=== PATIENT | female | born 1990 | race Caucasian/White ===

== ENCOUNTER → 2019-11-11 10:52 | Outpatient (CLI) | payer OTHER, SELFPAY ==
--- NOTE | ~2019-11-11 | XR_ITS ---
EXAMINATION: XR shoulder LT min 2V DATE: 11/11/2019 11:17 INDICATION: Left shoulder pain. TECHNIQUE: 4 views of left shoulder were obtained. COMPARISON: None. FINDINGS: Bone alignment is normal. No fracture. There is an os acromiale. Joint spaces are normal. IMPRESSION: 1. No acute fracture or arthritis. Reviewed, dictated and finalized at location A.
== END ==
PROVIDERS: PCP Family Medicine; Visit Provider Physician Assistant
DX: M25.512 Pain in left shoulder (principal)
CPT/HCPCS: 73030

== ENCOUNTER → 2020-06-08 14:51 | Outpatient (CLI) | payer OTHER, SELFPAY ==
--- NOTE | ~2020-06-08 | CT_ITS ---
EXAMINATION: CT BRAIN W/O DATE: 06/08/2020 15:05 INDICATION: Dizziness TECHNIQUE: Computed tomography (CT) of the head was performed without intravenous contrast. The dose- length product was 524.62 mGy-cm. The mA was adjusted according to patient size. Iterative reconstruc tion technique was employed. COMPARISON: No prior studies for comparison. FINDINGS: Normal brain parenchymal volume for age. Normal montejo-white differentiation. No acute intrac ranial hemorrhage, infarction, mass or mass effect. No ventriculomegaly or midline shift. Midline sagittal images demonstrate a normal corpus callosum, c raniovertebral junction and sella turcica. Basilar cisterns are patent. Paranasal sinuses and mastoids are pneumatized. No depressed skull fractures. IMPRESSION: 1. No acute intracranial abnormality. Reviewed, dictated and finalized at location A.
== END ==
PROVIDERS: PCP Family Medicine; Visit Provider Family Medicine
DX: R42 Dizziness and giddiness (principal)
CPT/HCPCS: 70450

== ENCOUNTER 2021-08-28 16:35 | Outpatient (CLI) | payer BC, SELFPAY ==
--- NOTE | ~2021-08-28 | US_ITS ---
EXAMINATION:US venous doppler LE BI INDICATION:Leg edema TECHNIQUE: Multiple grayscale, color flow and Doppler images of the right and left lower extremity de ep venous systems were obtained and reviewed. COMPARISON:No prior studies for comparison. FINDINGS: The common femoral, superficial femoral and popliteal veins demonstrate normal respiratory variation, augmentation and compressibility. Color flow is also seen within the posterior tibial, pe roneal, greater saphenous and profunda veins. IMPRESSION: 1: No lower extremity deep venous thrombosis. Reviewed, dictated and finalized at location A.
[2021-08-28 17:43] LABS: Basophils Absolute Auto 0.1 K/mm3 (0.0-0.1); Basophils Percent Auto 0.4 % (0.2-1.2); Eosinophils Absolute Auto 0.1 K/mm3 (0-0.3); Eosinophils Percent Auto 0.8 % (0-4.4); Hematocrit 38.4 % (37.0-47.0); Hemoglobin 12.8 g/dL (12.0-15.0); Immature Granulocyte Absolute 0.22 K/mm3 (0.00-0.031); Immature Granulocyte Percent A 1.6 % (0-0.5); Lymphocytes Absolute Auto 2.67 K/mm3 (0.9-3.2); Lymphocytes Percent Auto 19.9 % (18.3-44.2); Mean Corpuscular HGB Conc 33.3 g/dl (32-36); Mean Corpuscular Hemoglobin 30.5 pg (26-34); Mean Corpuscular Volume 91.6 fl (80-100); Mean Platelet Volume 10.8 fl (7.4-10.4); Monocytes Percent Auto 7.2 % (2.6-8.5); Neutrophils Absolute Auto 9.4 K/mm3 (1.3-6.7); Neutrophils Percent Auto 70.1 % (45.5-73.1); Platelet Count Result 198 k/mm3 (150-375); Red Blood Count 4.19 M/mm3 (4.2-5.4); Red Cell Distribution Width 12.8 % (11.5-14.5); White Blood Count 13.4 K/mm3 (4.5-10.0)
[2021-08-28 17:49] LABS: Creatinine Urine 42.7 mg/dL
[2021-08-28 17:57] LABS: Alanine Aminotransferase 21 U/L (6-35); Albumin Level 3.5 g/dL (3.5-5.1); Alkaline Phosphatase 102 U/L (38-126); Anion Gap 4 mmol/L (8-16); Aspartate Amino Transferase 26 U/L (14-36); Bilirubin,Total 0.2 mg/dL (0.2-1.3); Blood Urea Nitrogen 10 mg/dL (7-17); Carbon Dioxide 25 mmol/L (22-30); Chloride 105 mmol/L (98-107); Estimated Glomerular Filt Rate > 60; Glucose 100 mg/dL (65-110); Potassium 4.1 mmol/L (3.4-5.0); Sodium 134 mmol/L (137-145)
== END 2021-08-28 16:36 | disposition home or self-care (01) ==
PROVIDERS: PCP Internal Medicine; Visit Provider Obstetrics & Gynecology
DX: R60.0 Localized edema (principal)
CPT/HCPCS: 36415; 80053; 82570; 84550; 85025; 93970

== ENCOUNTER 2021-09-12 00:24 | Inpatient (IN) | payer BC, SELFPAY ==
[2021-09-12] VITALS (228 sets, daily range): BP systolic 91–152; BP diastolic 50–102; PULSE 40–150; RESP 12–18; TEMP 35.9–37.2; O2SAT 80–100; BMI 42.7
--- NOTE | 2021-09-12 00:46 | WPDOBADMIT ---
Obstetrics - Admit Note Admission Note: record reviewed. No pertinent additions to the history and/or any subsequent changes in the physical findings that are not consistent with the expected course of the were found. Pt admitted for SROM, SVE by RN , plan augmentation with pitocin if needed. anticipate vaginal delivery Additions to the history and/or subsequent changes in the physical findings follow. None.
--- NOTE | 2021-09-12 03:36 | P.PNAN_ITS ---
Anes - Eval Pre Procedure Procedure: labor epidural Date/Time: 09/12/21 03:36 Surgeon: timothy Preop Diagnosis: pain during labor Pre Op Diagnosis: Leaking Patient Data Age: 30 Gender: F Height: Weight: Last Vital Signs Pulse 84 09/12/21 01:46 BP 126/80 09/12/21 01:46 Allergies Allergy/AdvReac Type Severity Reaction Status Date / Time No Known Allergies Allergy Unverified 05/25/20 08:53 Home Medications Medication Instructions Recorded Confirmed Type Adult Low Dose Aspirin 1 tablet DAILY 09/06/21 09/06/21 History prenat.vits,jessica,aiw-eoon-lpmma 1 tablet PO DAILY 09/06/21 09/06/21 History Laboratory Tests 09/12/21 02:44 RPR Pending Patient hx anesthesia problems: none Family hx anesthesia problems: none Results Review: All pre-operative results and documents have been reviewed as part of the pre- operative evaluation. PMFSH Past Medical History Medical History (Updated 09/12/21 @ 03:37 by Phyllis To CRNA) IUP (intrauterine ), incidental Family History Family History (Updated 09/06/21 @ 15:41 by Caity Greenberg RN) Grandparent Hypertension Adenocarcinoma Social History Social History (Updated 11/11/19 @ 10:23 by Gwen Hayes) Smoking status: Never smoker Second hand tobacco smoke exposure: No Alcohol intake: current Alcohol use details: occasional Substance use: never Substance use type: does not use Gender identity (if verbalized by the patient): Female Spiritual care concerns: No Exam Day of Procedure 09/12/21 03:36
[2021-09-12] MEDS: LACTATED RINGERS 1,000 ML 125 ML IV CONT ×4 (05:06→19:50)
[2021-09-12] MEDS: OXYTOCIN 30 UNITS/NS 500 ML 30 UNITS/500 ML BAG IV CONT (05:07)
[2021-09-12 07:25] LABS: Rapid Plasma Reagin Non-Reactive (NonReactive)
[2021-09-12] MEDS: fentaNYL CITRATE INJ (*CRX) 100 MCG/2 ML VIAL 50 MCG IV PUSH (07:41)
[2021-09-12] MEDS: ONDANSETRON INJ 4 MG/2 ML VIAL IV PUSH (15:14)
[2021-09-12] MEDS: AMPICILLIN 2 GM/NS 100 ML 2 GM/100 ML BAG IVPB (18:49)
--- NOTE | 2021-09-12 21:33 | PM.IMHP ---
H&P: HPI History of Present Illness Date/Time: 09/12/21 21:33 at 37 weeks gestation. pt admitted after SROM at home Pt had covid during and has been asa. Hx LEEP prior to procedure Chief Complaint: SROM Review of Systems Review of Systems: All systems reviewed & are unremarkable except as noted in HPI and below PMFSH Past Medical History Medical History (Updated 09/12/21 @ 21:38 by Norma Rogers CNM) IUP (intrauterine ), incidental Family History Family History (Updated 09/06/21 @ 15:41 by Caity Greenberg RN) Grandparent Hypertension Adenocarcinoma Social History Social History (Updated 11/11/19 @ 10:23 by Gwen Hayes) Smoking status: Never smoker Second hand tobacco smoke exposure: No Alcohol intake: current Alcohol use details: occasional Substance use: never Substance use type: does not use Gender identity (if verbalized by the patient): Female Spiritual care concerns: No Meds Home Medications and Allergies Home Medications Medication Instructions Recorded Confirmed Type Adult Low Dose Aspirin 1 tablet DAILY 09/06/21 09/06/21 History prenat.vits,jessica,lox-novd-fsrvi 1 tablet PO DAILY 09/06/21 09/06/21 History Allergies Allergy/AdvReac Type Severity Reaction Status Date / Time No Known Allergies Allergy Unverified 05/25/20 08:53 Vital Signs Vital Signs - 24 hr 09/12/21 00:46 09/12/21 01:01 09/12/21 01:16 Temperature Pulse Rate 76 92 71 Blood Pressure 137/83 123/82 125/78 Pulse Oximetry Oxygen Delivery 09/12/21 01:31 09/12/21 01:46 09/12/21 05:08 Temperature Pulse Rate 104 H 84 68 Blood Pressure 119/84 126/80 121/79 Pulse Oximetry Oxygen Delivery 09/12/21 05:12 09/12/21 05:31 09/12/21 06:01 Temperature 36.3 C L Pulse Rate 73 74 Blood Pressure 112/56 L 111/61 Pulse Oximetry Oxygen Delivery 09/12/21 01:00 09/12/21 03:00 09/12/21 06:31 Temperature 36.1 C L 36.4 C Pulse Rate 76 Blood Pressure 117/78 Pulse Oximetry Oxygen Delivery 09/12/21 06:30 09/12/21 07:01 09/12/21 07:31 Temperature 36.3 C L Pulse Rate 65 82 Blood Pressure 120/72 119/83 Pulse Oximetry Oxygen Delivery 09/12/21 08:01 09/12/21 08:30 09/12/21 08:31 Temperature 36.1 C L Pulse Rate 82 67 Blood Pressure 125/71 106/63 Pulse Oximetry Oxygen Delivery 09/12/21 09:01 09/12/21 09:30 09/12/21 09:31 Temperature Pulse Rate 88 93 Blood Pressure 139/84 141/80 H Pulse Oximetry 100 Oxygen Delivery 09/12/21 09:33 09/12/21 09:35 09/12/21 09:37 Temperature Pulse Rate 101 H 99 110 H Blood Pressure 142/83 H 132/86 143/93 H Pulse Oximetry 100 Oxygen Delivery 09/12/21 09:39 09/12/21 09:40 09/12/21 09:41 Temperature Pulse Rate 84 72 Blood Pressure 144/81 H 131/74 Pulse Oximetry 100 Oxygen Delivery 09/12/21 09:43 09/12/21 09:45 09/12/21 09:47 Temperature Pulse Rate 76 76 95 Blood Pressure 130/76 122/83 121/79 Pulse Oximetry 100 Oxygen Delivery 09/12/21 09:49 09/12/21 09:50 09/12/21 09:51 Temperature Pulse Rate 71 87 Blood Pressure 140/76 142/91 H Pulse Oximetry 99 Oxygen Delivery 09/12/21 09:53 09/12/21 09:55 09/12/21 09:57 Temperature Pulse Rate 75 78 90 Blood Pressure 144/70 H 139/66 124/81 Pulse Oximetry 99 Oxygen Delivery 09/12/21 09:59 09/12/21 10:00 09/12/21 10:01 Temperature Pulse Rate 85 78 Blood Pressure 133/82 136/77 Pulse Oximetry 100 Oxygen Delivery 09/12/21 10:03 09/12/21 10:05 09/12/21 10:07 Temperature Pulse Rate 107 H 98 78 Blood Pressure 124/80 122/76 134/82 Pulse Oximetry 100 Oxygen Delivery 09/12/21 10:09 09/12/21 10:10 09/12/21 10:11 Temperature Pulse Rate 77 150 H Blood Pressure 125/77 122/69 Pulse Oximetry 100 Oxygen Delivery 09/12/21 10:13 09/12/21 10:15 09/12/21 10:17 Temperature Pulse Rate 116 H 79
--- NOTE | 2021-09-12 21:51 | PM.IMHP ---
H&P: HPI History of Present Illness Date/Time: 09/12/21 21:51 Chief Complaint: at 37 weeks, pt has been complete and pushing for almost 2 hours with minimal descent, pt fatigued PMFSH Past Medical History Medical History (Updated 09/12/21 @ 21:52 by Norma Rogers CNM) IUP (intrauterine ), incidental Family History Family History (Updated 09/06/21 @ 15:41 by Caity Greenberg RN) Grandparent Hypertension Adenocarcinoma Social History Social History (Updated 11/11/19 @ 10:23 by Gwen Hayes) Smoking status: Never smoker Second hand tobacco smoke exposure: No Alcohol intake: current Alcohol use details: occasional Substance use: never Substance use type: does not use Gender identity (if verbalized by the patient): Female Spiritual care concerns: No Meds Home Medications and Allergies Home Medications Medication Instructions Recorded Confirmed Type Adult Low Dose Aspirin 1 tablet DAILY 09/06/21 09/06/21 History prenat.vits,jessica,[id number] 1 tablet PO DAILY 09/06/21 09/06/21 History Allergies Allergy/AdvReac Type Severity Reaction Status Date / Time No Known Allergies Allergy Unverified 05/25/20 08:53 Vital Signs Vital Signs - 24 hr 09/12/21 00:46 09/12/21 01:01 09/12/21 01:16 Temperature Pulse Rate 76 92 71 Blood Pressure 137/83 123/82 125/78 Pulse Oximetry Oxygen Delivery 09/12/21 01:31 09/12/21 01:46 09/12/21 05:08 Temperature Pulse Rate 104 H 84 68 Blood Pressure 119/84 126/80 121/79 Pulse Oximetry Oxygen Delivery 09/12/21 05:12 09/12/21 05:31 09/12/21 06:01 Temperature 36.3 C L Pulse Rate 73 74 Blood Pressure 112/56 L 111/61 Pulse Oximetry Oxygen Delivery 09/12/21 01:00 09/12/21 03:00 09/12/21 06:31 Temperature 36.1 C L 36.4 C Pulse Rate 76 Blood Pressure 117/78 Pulse Oximetry Oxygen Delivery 09/12/21 06:30 09/12/21 07:01 09/12/21 07:31 Temperature 36.3 C L Pulse Rate 65 82 Blood Pressure 120/72 119/83 Pulse Oximetry Oxygen Delivery 09/12/21 08:01 09/12/21 08:30 09/12/21 08:31 Temperature 36.1 C L Pulse Rate 82 67 Blood Pressure 125/71 106/63 Pulse Oximetry Oxygen Delivery 09/12/21 09:01 09/12/21 09:30 09/12/21 09:31 Temperature Pulse Rate 88 93 Blood Pressure 139/84 141/80 H Pulse Oximetry 100 Oxygen Delivery 09/12/21 09:33 09/12/21 09:35 09/12/21 09:37 Temperature Pulse Rate 101 H 99 110 H Blood Pressure 142/83 H 132/86 143/93 H Pulse Oximetry 100 Oxygen Delivery 09/12/21 09:39 09/12/21 09:40 09/12/21 09:41 Temperature Pulse Rate 84 72 Blood Pressure 144/81 H 131/74 Pulse Oximetry 100 Oxygen Delivery 09/12/21 09:43 09/12/21 09:45 09/12/21 09:47 Temperature Pulse Rate 76 76 95 Blood Pressure 130/76 122/83 121/79 Pulse Oximetry 100 Oxygen Delivery 09/12/21 09:49 09/12/21 09:50 09/12/21 09:51 Temperature Pulse Rate 71 87 Blood Pressure 140/76 142/91 H Pulse Oximetry 99 Oxygen Delivery 09/12/21 09:53 09/12/21 09:55 09/12/21 09:57 Temperature Pulse Rate 75 78 90 Blood Pressure 144/70 H 139/66 124/81 Pulse Oximetry 99 Oxygen Delivery 09/12/21 09:59 09/12/21 10:00 09/12/21 10:01 Temperature Pulse Rate 85 78 Blood Pressure 133/82 136/77 Pulse Oximetry 100 Oxygen Delivery 09/12/21 10:03 09/12/21 10:05 09/12/21 10:07 Temperature Pulse Rate 107 H 98 78 Blood Pressure 124/80 122/76 134/82 Pulse Oximetry 100 Oxygen Delivery 09/12/21 10:09 09/12/21 10:10 09/12/21 10:11 Temperature Pulse Rate 77 150 H Blood Pressure 125/77 122/69 Pulse Oximetry 100 Oxygen Delivery 09/12/21 10:13 09/12/21 10:15 09/12/21 10:17 Temperature Pulse Rate 116 H 79 118 H Blood Pressure 124/74 137/78 117/68 Pulse Oximetry 100 Oxygen Delivery 09/12/21 10:19 09/12/21 10:20 09/12/21 10:21 Loni
--- NOTE | 2021-09-12 22:03 | PM.IMHP ---
H&P: HPI History of Present Illness Date/Time: 09/12/21 22:03 Chief Complaint: Failure to progress Narrative: this patient is a 30-year-old 1 at 39 weeks gestation who spontaneously ruptured membranes and was augmented for labor.. She dilated completely was dense head did not descend. She pushed for over 2 hours without progress. We have agreed to perform delivery. She understands that injuries may occur that result in hospitalization, more surgery, and severe illness. She understands there is risk of hemorrhage and infection. Review of Systems Review of Systems: All systems reviewed & are unremarkable except as noted in HPI and below Constitutional: Constitutional: Denies chills, Denies fatigue, Denies fever(s) and Denies weakness Eyes: Eyes: Denies blurry vision, Denies change in vision, Denies loss of peripheral vision, Denies loss of vision, Denies other visual disturbances and Denies eye pain ENT: Denies vertigo, Denies dizziness, Denies hearing loss, Denies mouth pain, Denies nasal obstruction, Denies neck mass and Denies neck pain Cardiovascular: Cardiovascular: Denies chest pain, Denies diaphoresis, Denies syncope, Denies leg edema and Denies dyspnea Respiratory: Respiratory: Denies chest congestion, Denies cough, Denies hemoptysis, Denies dyspnea and Denies wheezing Gastrointestinal: Gastrointestinal: Denies abdominal pain, Denies constipation, Denies diarrhea, Denies nausea and Denies vomiting Genitourinary: Genitourinary: Denies hematuria, Denies change in libido, Denies nocturia, Denies genital lesions, Denies flank pain and Denies urinary urgency Musculoskeletal: Musculoskeletal: Denies abnormal gait, Denies back pain, Denies myalgias, Denies arthralgias, Denies joint swelling, Denies muscle weakness and Denies neck pain Integumentary/Breasts: Skin/Breast: Denies swelling, Denies breast pain, Denies breast mass, Denies dry skin, Denies nipple discharge, Denies unusual bruising and Denies jaundice Neurologic: Denies Neuro-related abnormal movements, Denies Abnormal speech present, Denies abnormal gait, Denies behavioral changes, Denies confusion, Denies vertigo, Denies dizziness, Denies syncope, Denies loss of vision, Denies memory loss, Denies convulsions and Denies weakness Psychiatric: Psychiatric: Denies abnormal sleep pattern, Denies behavioral changes, Denies change in libido, Denies confusion, Denies depression, Denies anhedonia and Denies memory loss Endocrine: Endocrine: Reports no additional endocrine complaints, Denies change in libido and Denies fatigue Hematologic/Lymphatic: Hematologic/Lymphatic: Reports no additional hematologic/lymphatic complaints Allergic/Immunologic: Allergic/Immunologic: Reports no additional allergic/immunologic complaints and Denies wheezing PMFSH Past Medical History Medical History (Updated 09/12/21 @ 21:52 by Norma Rogers CNM) IUP (intrauterine ), incidental Family History Family History (Updated 09/06/21 @ 15:41 by Caity Greenberg RN) Grandparent Hypertension Adenocarcinoma Social History Social History (Updated 11/11/19 @ 10:23 by Gwen Hayes) Smoking status: Never smoker Second hand tobacco smoke exposure: No Alcohol intake: current Alcohol use details: occasional Substance use: never Substance use type: does not use Gender identity (if verbalized by the patient): Female Spiritual care concerns: No Meds Home Medications and Allergies Home Medications Medication Instructions Recorded Confirmed Type Adult Low Dose Aspirin 1 tablet DAILY 09/06/21 09/06/21 History prenat.vits,jessica,zze-[id number] 1 tablet PO DAILY 09/06/21 09/06/21 History Allergies Allergy/AdvReac Type Severity Reaction Status Date / Time No Known Allergies Allergy Unverified 05/25/20 08:53 Vital Signs Vital Signs - 24 hr 09/12/21 00:46 09/12/21 01:01 09/12/21 01:16 Temperature Pulse Rate 76 92 71 B
--- NOTE | 2021-09-12 22:08 | WPDHPUPDATE1 ---
History and Physical Update Update Date/Time: 09/12/21 22:08 History and Physical has been reviewed, including an updated exam of the patient. There are NO changes in the patient's condition. Risks, benefits, and alternatives have been discussed and questions answered. Patient agrees to proceed with procedure.
[2021-09-12] MEDS: KETOROLAC 30 MG/ML VIAL (*BKC) IV PUSH (22:35)
--- NOTE | 2021-09-12 23:15 | W.PM.PROC2 ---
Procedure Note - Detailed Date of Procedure 09/12/21 Pre-op Diagnosis Failure to progress, term gestation, spontaneous rupture of membranes Post-op Diagnosis Same Procedure Performed Low-transverse section Surgeon Lindy Monae MD Anesthesia Spinal Indications failure to progress Findings Normal gestational maternal anatomy, average size , normal Apgars. Description of Procedure The patient was taken the operating room. She was prepped and draped in dorsal supine position with a leftward tilt. This was done after spinal anesthetic was applied. A low-transverse skin incision was made and carried down till of the fascia with the knife. The fascial incision was made with the knife. The fascial incision was extended laterally with Burton scissors. The fascia was tented upward superiorly and inferiorly the rectus muscles were dissected off bluntly. The rectus muscles were the midline. The preperitoneal fat and peritoneum were dissected open bluntly at the superior aspect of the rectus muscles. The peritoneal incision was extended superior and inferior with good position of bladder. The uterine incision was made with a scalpel down to the level of the amniotic cavity. The amniotic cavity was entered bluntly. The infant was delivered. The cord was clamped and cut and the was handed off to waiting pediatric staff. Cord bloods were obtained. The placenta was removed manually. The uterus was exteriorized. The uterus was cleared of all clots, debris and membranes. The uterus was closed in 0 Vicryl running lock fashion. An imbricating over a was placed along the incision line as well. The uterus was returned to the abdomen. The gutters were cleared of all clots and debris. The fascia was closed with 0 Vicryl running fashion. The subcutaneous tissue was irrigated pinpoint bleeders were cauterized. The skin was closed with subcuticular absorbable edna. The skin incision line was covered with glue. The patient tolerated the procedure well. She has taken recovery room in stable condition. Sponge lap and needle counts were correct x2. Estimated Blood Loss 500 Complications No immediate complications Condition Stable Disposition PACU
[2021-09-13] VITALS (36 sets, daily range): BP systolic 103–143; BP diastolic 65–94; PULSE 63–99; RESP 14–20; TEMP 36.5–37.6; O2SAT 97–100
[2021-09-13] MEDS: OXYTOCIN 30 UNITS/NS 500 ML 30 UNITS/500 ML BAG 125 UNITS IV CONT (01:53)
--- NOTE | 2021-09-13 02:00 | PC.NURSE ---
Patient transferred to post room #286 per stretcher from labor and delivery. Support person present. Oriented to unit, room, information board, rooming in, admission packet and security measures. Patient verbalizes understanding.
[2021-09-13 04:56] LABS: Basophils Absolute Auto 0.1 K/mm3 (0.0-0.1); Basophils Percent Auto 0.3 % (0.2-1.2); Eosinophils Absolute Auto 0.1 K/mm3 (0-0.3); Eosinophils Percent Auto 0.4 % (0-4.4); Hematocrit 29.8 % (37.0-47.0); Hemoglobin 9.9 g/dL (12.0-15.0); Immature Granulocyte Absolute 0.17 K/mm3 (0.00-0.031); Immature Granulocyte Percent A 0.9 % (0-0.5); Lymphocytes Absolute Auto 2.84 K/mm3 (0.9-3.2); Lymphocytes Percent Auto 14.8 % (18.3-44.2); Mean Corpuscular HGB Conc 33.2 g/dl (32-36); Mean Corpuscular Hemoglobin 30.1 pg (26-34); Mean Corpuscular Volume 90.6 fl (80-100); Mean Platelet Volume 11.5 fl (7.4-10.4); Monocytes Absolute Auto 1.1 K/mm3 (0.1-0.6); Monocytes Percent Auto 5.8 % (2.6-8.5); Neutrophils Percent Auto 77.8 % (45.5-73.1); Platelet Count Result 175 k/mm3 (150-375); Red Blood Count 3.29 M/mm3 (4.2-5.4); Red Cell Distribution Width 12.9 % (11.5-14.5); White Blood Count 19.2 K/mm3 (4.5-10.0)
[2021-09-13] MEDS: DEXTROSE 5%/0.45% SOD CHL 1,000 ML 125 ML IV CONT (06:00)
--- NOTE | 2021-09-13 07:54 | PM.OBPNVD ---
OB - PN: Subj Subjective Date/time seen: 09/13/21 07:54 Patient comments: no complaints, pain well controlled, tolerating diet and flatus present OB - PN: Obj Data Labs CBC & Chem 7: 09/13/21 04:36 Labs: Laboratory Results - last 24 hr 09/13/21 04:36 WBC 19.2 H RBC 3.29 L Hgb 9.9 L Hct 29.8 L MCV 90.6 MCH 30.1 MCHC 33.2 RDW 12.9 Plt Count 175 MPV 11.5 H Immature Gran % (Auto) 0.9 H Neut % (Auto) 77.8 H Lymph % (Auto) 14.8 L Alexander % (Auto) 5.8 Eos % (Auto) 0.4 Baso % (Auto) 0.3 Lymph # (Auto) 2.84 Alexander # (Auto) 1.1 H Eos # (Auto) 0.1 Baso # (Auto) 0.1 Abs Immat Gran (auto) 0.17 H Absolute Neuts (auto) 15.0 H Absolute Nucleated RBC 0.0 Nucleated RBC % 0.0 OB - PN A/P Plan day: 1 Comments: Post Op LTCS - no problems, routine recovery Time Spent With Patient Time: Total time spent is greater than 50% in coordination of care (as documented) at patient's floor/unit and/or counseling patient: Exam Const: General: cooperative, healthy appearing, comfortable and no acute distress Resp: Auscultation: no crackles, no rales, no rhonchi and no wheezes Cardio: Rhythm: regular rhythm Heart sounds: no click and no murmurs GI: Inspection: non-distended Auscultation: normal bowel sounds Extrem: General: normal to inspection, no pedal edema and no calf tenderness
[2021-09-13] MEDS: POLYSACCHARIDE IRON COMPLEX 150 MG CAPSULE PO ×2 (09:29→16:18)
[2021-09-13] MEDS: DOCUSATE SODIUM 100 MG CAPSULE PO ×2 (09:29→16:18)
[2021-09-13] MEDS: MULTIVIT/MIN/PREN/FOL AC/IRON TABLET 1 TAB PO (09:29)
[2021-09-13] MEDS: IBUPROFEN 600 MG TABLET PO ×2 (09:29→16:18)
--- NOTE | 2021-09-13 11:04 | PC.NURSE ---
[id number] Introductions were made, then consulted with patient to assess needs related to . Mother led the conversation with her experience feeding her so far. Mother works well with her with encouragement and education. Encouraged understanding of the benefits of skin to skin (unwrapping and placing vertically on her chest), responsive feeding and how to watch for early feeding signs, frequency of feeding on demand about every 8-12 times in 24 hours (every 2-3 hours), milk production, duration of feeding, signs of adequate intake/output and how to record on the feeding sheet. Infant was circumcised this morning and is sleepy and reluctant. With a lot of stimulation infant showed rare feeding cues and efforts. Encouraged skin to skin and working with a 37EGA infant to keep intake, output, weight, jaundice, and blood sugar appropriate. Reviewed good handwashing when or touching the breast/nipples to prevent infection and hand expression for stimulating milk production. Resources used to facilitate learning were used with the visual handouts/ tool/mom and baby guide. Mother voiced understanding of responsive feedings, stimulating with skin to skin, hand expressed colostrum, touch, talking to infant to encourage if it has been 2 -3 hours since the start of the last , to call if does not latch or there is discomfort with . Reported to the primary RN Jaleesa.
--- NOTE | 2021-09-13 13:07 | WPDANLDPN2 ---
Anes-Prog Note L&D Date/Time: 09/13/21 13:07 Comfortable throughout: labor and section Neuraxial method: epidural Epidural/Spinal procedure site: clean & non-tender Neuro status: Neuro function grossly intact. Cardiovascular status: normal Respiratory status: normal Airway patency: baseline Mental status: baseline Post-Op hydration status: normal Vital Signs: Last Vital Signs Temp 37.1 C 09/13/21 12:08 Pulse 88 09/13/21 12:08 Resp 18 09/13/21 12:08 BP 118/70 09/13/21 12:08 Pulse Ox 97 09/13/21 12:08 O2 Del Method Room Air 09/13/21 01:25 Pain score (VAS): 2/10 I/O: Intake & Output 09/12/21 09/13/21 09/13/21 23:59 07:59 15:59 Intake Total 1000 300 Output Total [phone] Balance 55 -200 -725 Post-procedural complaints: none Patient feedback: Patient satisfied with anesthetic care.
--- NOTE | 2021-09-13 13:07 | WPDANLDNPN2 ---
Anes-Prog Note L&D-Neuraxial Date/Time: 09/13/21 13:07 Neuraxial medications: epidural PF morphine Opiod-related complaints: none Patient feedback: Patient satisfied with post-operative pain management.
[2021-09-13] MEDS: BENZOCAINE 20% AER SPR (*SP) 56 GM CAN 1 SPRAY (14:11)
[2021-09-13] MEDS: WITCH HAZEL 40 PADS 1 PAD (14:11)
[2021-09-13] MEDS: ACETAMINOPHEN 325 MG TABLET 650 MG PO (16:19)
[2021-09-14] MEDS: ACETAMINOPHEN 325 MG TABLET 650 MG PO ×2 (01:26→10:17)
[2021-09-14] MEDS: IBUPROFEN 600 MG TABLET PO ×2 (01:26→10:18)
--- NOTE | 2021-09-14 07:55 | PM.OBPNVD ---
OB - PN: Subj Subjective Date/time seen: 09/14/21 07:55 Patient comments: no complaints, pain well controlled, incisional pain, tolerating diet and flatus present OB - PN: Obj Data Labs CBC & Chem 7: 09/13/21 04:36 OB - PN A/P Plan day: 2 Plan: routine care Comments: POD#2 LTCS - no problems, Time Spent With Patient Time: Total time spent is greater than 50% in coordination of care (as documented) at patient's floor/unit and/or counseling patient: Exam Const: General: comfortable, no acute distress and alert Resp: Effort & Inspection: normal respiratory effort Auscultation: no crackles, no rales and no rhonchi Cardio: Rate: regular rate Heart sounds: no click, no murmurs and no rubs GI: Inspection: non-distended GI Palp: No Tenderness to palpation present (GI) Auscultation: normal bowel sounds Other: Incision - CDI Extrem: General: normal to inspection, no pedal edema and no calf tenderness
[2021-09-14 08:00] VITALS: BP 139/83; PULSE 97; RESP 18; TEMP 36.3
--- NOTE | 2021-09-14 08:06 | PM.OBDSVD ---
DS: Admitting Diagnosis Discharge Date 09/14/2021 Admitting Diagnosis term OB - DS: Summary OB Procedures : None OB Procedures Intrapartum: OB Procedures: : None Peripartum Data Procedures: Procedures Operation Date: 09/12/21 22:15 Actual Procedure Side Surgeon p Section Lindy Monae MD Time Spent with Patient Time attestation: Total time spent providing and/or coordinating discharge services: Discharge Plan Discharge Consulting providers: Norma Rogers Discharging Clinician: Lindy Monae Patient Disposition: Home, Self-Care Activity: pelvic rest Diet: regular Patient Instructions: Antibiotic Form Stand Alone Forms: General Discharge Information Follow-up/Referrals: Lindy Monae MD [Physician] - Discharge Medications: Continued Adult Low Dose Aspirin 1 tablet DAILY #2 Tablet 1 tablet PO DAILY Date of admission: 09/12/21 00:24 Primary Care Provider: Toshia Anderson Admitting Provider: Cinthya Mora Attending physician on admission: Cinthya Mora Condition: Stable
[2021-09-14] MEDS: POLYSACCHARIDE IRON COMPLEX 150 MG CAPSULE PO (10:17)
[2021-09-14] MEDS: DOCUSATE SODIUM 100 MG CAPSULE PO (10:17)
[2021-09-14] MEDS: MULTIVIT/MIN/PREN/FOL AC/IRON TABLET 1 TAB PO (10:17)
[2021-09-16 09:20] VITALS: BP 133/89; PULSE 82; RESP 16; TEMP 36.9
== END 2021-09-14 11:10 | disposition home or self-care (01) | DRG 788 ==
LOC: ANHLDR 01:05 → ANHOB2 09-14 08:08 → ANHLDR 09-17 12:19
PROVIDERS: Advanced Practice Midwife; Admitting Provider Obstetrics & Gynecology; PCP Internal Medicine; Visit Provider Obstetrics & Gynecology
PROC: 10D00Z1 Extraction of Products of Conception, Low, Open Approach (ICD-10-PCS; CPT 59514; principal; 2021-09-12 22:15)
DX: O62.2 Other uterine inertia (principal); O76 Abnormality in fetal heart rate and rhythm complicating labor and delivery; Z3A.37 37 weeks gestation of pregnancy; Z37.0 Single live birth; Z86.16 Personal history of COVID-19; Z79.82 Long term (current) use of aspirin
CPT/HCPCS: 36415; 85025; 86592; 86850; 86900; 86901; A9270; J0131; J0290; J1885; J2175; J2274; J2405; J2590; J2795; J3010; J7120

== ENCOUNTER 2022-03-28 10:44 | Outpatient (CLI) | payer BC, SELFPAY ==
--- NOTE | 2022-03-28 11:01 | ECG_ITS ---
Measurements Intervals [place] Rate: 56 P: 22 [place]: 135 QRS: 46 QRSD: 97 T: 46 QT: 390 QTc: 379 Interpretive Statements SINUS BRADYCARDIA WITH SINUS ARRHYTHMIA NORMAL ECG NO PREVIOUS ECG AVAILABLE FOR COMPARISON Electronically Signed On 03-28-2022 13:14:47 [employer] AND HEALTH CONSULTANT by Josue Cabello M.D.
== END 2022-03-28 10:45 | disposition home or self-care (01) ==
PROVIDERS: PCP Internal Medicine; Visit Provider Nurse Practitioner
DX: E66.9 Obesity, unspecified (principal)
CPT/HCPCS: 93005

== ENCOUNTER 2024-02-08 14:10 | Outpatient (CLI) | payer BC, SELFPAY ==
--- NOTE | 2024-02-08 | ECG_ITS ---
Test Date: 2024-02-08 14:37:45 Measurements Intervals [place] Rate: 63 P: 40 WA: 132 QRS: 29 QRSD: 104 T: 47 QT: 378 QTc: 387 Interpretive Statements SINUS RHYTHM WITH MARKED SINUS ARRHYTHMIA possible delta wave No previous ECG available for comparison Electronically Signed On 02-09-2024 15:06:10 [employer] by Shabbir Burger M.D.
== END 2024-02-08 14:11 | disposition home or self-care (01) ==
PROVIDERS: PCP Internal Medicine; Visit Provider Obstetrics & Gynecology
DX: I49.8 Other specified cardiac arrhythmias (principal); E66.9 Obesity, unspecified
CPT/HCPCS: 93005

== ENCOUNTER 2024-04-28 11:21 | Outpatient (CLI) | payer BC, SELFPAY ==
--- NOTE | ~2024-04-28 | MMUS_ITS ---
EXAMINATION: MM diagnostic lona BI w maurisio, US breast RT limited HISTORY: Right breast lump TECHNIQUE: 3-D tomosynthesis images of the breasts were performed and synthetic 2-D images were gener ated. CAD analysis was submitted and interpreted. High resolution limited right breast ultrasound was performed. COMPARISON: None BREAST PARENCHYMAL COMPOSITION:Dense: The breasts are heterogeneously dense, which may obscure small masses. FINDINGS: MAMMOGRAPHIC FINDINGS: Parenchymal pattern of the breasts is unremarkable. No suspicious mass lesion or distortion. No suspi cious microcalcification. ULTRASOUND: Scan performed at the 12:00-o'clock positions of the right breast, 10 cm from the nipple. No solid or cystic abnormality seen in the region scanned. IMPRESSION: No evidence for malignancy. No mammographic or sonographic correlate seen for area of palpable tod rn in the right breast. BI-RADS Category 1: Negative Reviewed, dictated and finalized at [facility]. IMPRESSION: No evidence for malignancy. No mammographic or sonographic correlate seen for area of palpable concern in the right breast. BI-RADS Category 1: Negative
--- OUTSIDE RECORDS SUMMARY | 2024-04-28 13:17 | XMS_ITS | Data Portability ---
Author Organization [facility] [place] Address [address] [place] [address] [place] [address] Care Team Providers Care Game Protector Name Role Phone DINESH JENKINS Primary Care Provider Assessment Encounter Date Assessment Date Assessment LastModified by Organization Details LastModified Time 01/19/2024 01/19/2024 Patient here due to a UTI, per MM leaving a sample. Dipped urine, will send for culture. Treat results as needed. Not available 01/19/2024 11:21:42 Plan of Treatment Reminders Order Date Submit Date Provider Last Modified By Organization Details Last Modified Time Details Appointments None recorded. Lab urinalysis, dipstick 2023 024 [email or web address] [place], [address], [place], [address], 4 11:22:43 culture, urine 2023 024 [facility] (Lab), [address], [place], [address], 4 08:09:37 Referral None recorded. Procedures None recorded. Surgeries None recorded. Imaging MAMMO, diagnostic, digital, bilateral 2024 [email or web address] [place] [address] - [facility], [address], [facility], [place], [address], 5 09:50:39 electrocard iogram 2023 024 [facility] (Cardiology & Emg), [address], [place], [address], 4 04:02:28 US, obstetric, 2nd or 3rd trimester 2023 024 [email or web address] 4 [place], [address], [place], [address], 15:13:33 US, obstetric, transvagina l 2023 024 [email or web address] 4 [place], [address], [place], [address], 4 15:13:33 Medication Orders Blisovi Fe 1/20 (28) 1 mg-20 mcg (21)/75 mg (7) tablet 2023 [id number], [address], [place], [place], [id number], 14:46:08 Patient TargetsNo targets recorded. Patient InstructionsNo instructions recorded. Reason for Referral None Reported. Results Created Date Observation Date Name Description Value Unit Range Abnormal Flag Note LastModifiedBy Organization Detail LastModifiedTime 01/19/20 24 01/19/2024 CULTU RE: URINE result report SEE RESULT S BELOW abnormal Test: Cultu re: Urine Speci men Sourc e: Urine - Clean Catch Speci men Type: Urine Speci men Date: 2023 1159 Resul t Date: 2023 0705 Resul t Statu s: Final resul t Abnor mal: Yes Resul nikita Lab: [facility] [address] [facility] [address] Tel: CULTU RE ----- ----- ----- --- 25,00 0-50, 000 CFU/m l Esche arsalan a coli (Abno rmal) PEEWEE PTIBI LITY ----- ----- ----- --- Esche arsalan a coli METHO D JAIME ----- ----- ----- ----- ----- ---- ----- ----- ----- ----- ----- - AMPIC ILLIN >16 ug/mL Resis tant AMPIC ILLIN /SULB ACTAM >16 ug/mL Resis tant AZTRE ONAM <=4 ug/mL Susce ptibl e CEFAZ ANSHU <=2 ug/mL Susce ptibl e CEFEP ACACIA <=2 ug/mL Susce ptibl e CEFTA ZIDIM E <=1 ug/mL Susce ptibl e CEFTR IAXON E <=1 ug/mL Susce ptibl e CIPRO FLOXA RE <=0.2 5 ug/mL Susce ptibl e GENTA MICIN <=2 ug/mL Susce ptibl e LEVOF LOXAC IN <= 0.5 ug/mL Susce ptibl e MEROP ENEM <=1 ug/mL Susce ptibl e NITRO FURAN TOIN 64 ug/mL Inter media te PIPER ACILL IN/TA ZOBAC BURLESON <=8 ug/mL Susce ptibl e TOBRA MYCIN <=2 ug/mL Susce ptibl e TRIME THOPR IM/THIBODEAUX LFAME THOXA ZOLE <=0.5 ug/mL Susce ptibl e Not Available [facility] (Lab) [address], [place], [address], 01/22/2024 08:09:37 01/19/20 24 01/19/2024 urina lysis , dipst ick Leukocytes ++ Not Available [facility] [address], [place], [address], 01/19/2024 11:21:47 01/19/20 24 01/19/2024 urina lysis , dipst ick Nitrite Negati ve Not Available [place] [address], [place], [address], 01/19/2024 11:21:47 01/19/20 24 01/19/2024 urina lysis , dipst ick Urobilinogen Normal Not Available [facility] [address], [place], [address], 01/19/2024 11:21:47 01/19/20 24 01/19/2024 urina lysis , dipst ick Protein Trace Not Available [place] [address], [place], [address], 01/19/2024 11:21:47 01/19/20 24 01/19/2024 urina lysis , dipst ick pH 5 Not Available [place] [address], [place], [address], 01/19/2024 11:21:47 01/19/20 24 01/19/2024 urina lysis , dipst ick Blood + Not Available [place] [address], [place], [address], 01/19/2024 11:21:47 01/19/20 24 01/19/2024 urina lysis , dipst ick Specific Adrian 1.020 Not Available [facility] [address], [place], [address], 01/19/2024 11:21:47 01/19/20 24 01/19/2024 urina lysis , dipst ick Ketone Negati ve Not Available [place] [address], [place], [address], 01/19/2024 11:21:47 01/19/20 24 01/19/2024 urina lysis , dipst ick Bilirubin Negati ve Not Available [place] [address], [place], [address], 01/19/2024 11:21:47 01/19/20 24 01/19/2024 urina lysis , dipst ick Glucose Normal Not Available [place] [address], [place], [address], 01/19/2024 11:21:47 01/19/20 24 01/19/2024 urina lysis , dipst ick Color Dark yellow Not Available [place] [address], [place], [address], 01/19/2024 11:21:47 02/08/20 24 02/08/2024 WOMEN 'S HEALT H SWAB PLUS, VIOLETTA bacterial vaginosis (bv), tma Negati ve negati ve Not Available [facility] (Lab) [address] [place], [address], 02/09/2024 17:06:45 02/08/20 24 02/08/2024 WOMEN 'S HEALT H SWAB PLUS, VILOETTA jennyfer species, tma Negati ve negati ve Not Available [facility] (Lab) [address] [facility], [place], [address], 02/09/2024 17:06:45 02/08/20 24 02/08/2024 WOMEN 'S HEALT H SWAB PLUS, VIOLETTA jennyfer glabrata, tma Negati ve negati ve Not Available [facility] (Lab) [address] [facility], [place], [address], 02/09/2024 17:06:45 02/08/20 24 02/08/2024 WOMEN 'S HEALT H SWAB PLUS, VIOLETTA trichomonas vaginalis, tma Negati ve negati ve Not Available [facility] (Lab) [address] [facility], [place], [address], 02/09/2024 17:06:45 02/08/20 24 02/08/2024 WOMEN 'S HEALT H SWAB PLUS, VIOLETTA chlamydia trachomatis, PCR Negati ve negati ve Not Available [facility] (Lab) [address] [place], [address], 02/09/2024 17:06:45 02/08/20 24 02/08/2024 WOMEN 'S HEALT H SWAB PLUS, VIOLETTA neisseria gonorrhoeae, PCR Negati ve negati ve Bacte rial vagin osis detec ts the follo wing bacte jose assoc iated with bacte rial vagin osis (BV): Lacto bacil dominick (L. gasse ri, L. crisp atus and L. jense pancho), Gardn erell a vagin samara, and Atopo bium vagin ae. A singl e quali tativ e resul t is repor harrison base on instr ument softw are to deter mine BV posit mago or negat mago statu s. The Saad[facility] da speci es group tests for C. albic ans, C. tropi calis , C. parap emma is, C. dubli niens is. Testi ng is perfo rmed using the Trans cript ion Media harrison Ampli ficat ion metho d. Tests for Saadia da glabr carl, Trich omona s vagin samara, Chlam ydia trach omati s, and Neiss eria gonor rhoea e are also inclu ded in this panel . Not Available [facility] (Lab) [address] , [place], [address], 02/09/2024 17:06:45 02/08/20 24 02/08/2024 CULTU RE: URINE result report SEE RESULT S BELOW Test: Cultu re: Urine Speci men Sourc e: Urine - Clean Catch Speci men Type: Urine Speci men Date: 02/07 1559 Resul t Date: 02/09 1411 Resul t Statu s: Final resul t Abnor mal: No Resul ting Lab: [facility] [address] [facility] [address] Tel: CULTU RE ----- ----- ----- --- Cultu re resul t (>=3 organ isms prese nt) indic ates possi ble conta minat ion. Repea t cultu re if sympt oms indic ate. Not Available [facility] (Lab) [address], [place], [address], 02/10/2024 15:13:48 12/08/1912/08/2023 US, obste tric, 2nd or 3rd trime ster No observ ation record ed. [facility] [address], [place], [address], 12/08/2023 18:09:07 12/08/1912/08/2023 US, obste tric, trans vagin al No observ ation record ed. [facility] [address], [place], [address], 12/08/2023 18:09:19 12/08/1912/08/2023 US, obste tric, 2nd or 3rd trime ster No observ ation record ed. [address] [facility], [place], [address], 12/08/2023 22:47:47 12/16/1912/16/2023 US, obste tric, mater nal evalu ation + anato my No observ ation record ed. [address] [facility] [place] [address] [place], [address], 12/17/2023 09:24:58 12/18/1912/16/2023 US, obste tric, follo w-up No observ ation record ed. [address] [facility] [place] [address] [facility], [place], [address], 12/22/2023 10:57:22 12/30/19 24 12/30/2023 US, obste tric, follo w-up No observ ation record ed. [address] [facility] [address], [place], [address], 12/31/2023 10:28:42 12/30/19 24 12/30/2023 US, obste tric, follo w-up No observ ation record ed. [email or web address] [facility] [address], [place], [address], 12/31/2023 10:28:15 02/10/2002/08/2024 imagi ng/di agnos tic resul t No observ ation record ed. LAST Not Available 2023 11:53:04 Result Notes None recorded. Problems Name Problem SNOMED Code Status Onset Date Resolution Date Notes Provider Name and Address Organization Details Recorded Time Pregnanc y 16237849 Completed 202110/04/2021 DEJA SANCHEZ MD [address], [place], [address], [facility] 4 11:27:54 History of loop electros urgical excision procedur e 3308104504 9102 Active CL at 16 and 20w Alba bernard, [facility] 2 15:26:22 History of SARS-CoV -2 2171507684 66180977 Com[facility] 2 15:26:22 History of loop electros urgical excision procedur e 2801084164 9102 Completed CL at 16 and 20w Alba douglass [facility], [facility] 2 15:26:22 Past pregnanc y history of ectopic pregnanc y 676871673 Active 2023 Curtis Dennis null, [facility] 4 11:31:36 Pregnanc y 29874185 Completed 202301/12/2024 DEJA SANCHEZ MD [address], [place], [address], [facility] 4 11:27:54 Past pregnanc y history of section 270352257 Completed Plan for repeat, desires tubal DEJA SANCHEZ MD [address], [place], [address], [facility] 4 23:49:34 Past pregnanc y history of section 386465852 Active Plan for repeat, desires tubal DEJA SANCHEZ MD [address], [place], [address], [facility] 4 23:49:34 Disorder of uterus 41485512 Completed 1-2mm of uterine wall underlyi ng bladder, thinning at site of previous hysterot ej [facility] referral order faxed 12/09/23 DEJA SANCHEZ MD [address], [place], [address], [facility] 4 23:49:34 Disorder of uterus 89352909 Active 1-2mm of uterine wall underlyi ng bladder, thinning at site of previous hysterot ej [facility] referral order faxed 12/09/23 DEJA SANCHEZ MD [address], [place], [address], [facility] 4 23:49:34 Problem Notes None recorded. Procedures Surgical History Date Name Laterality Status Provider Name and Address Organization Details Recorded Time 4 [facility]/12[facility]2024 10:59:54 4 Date of Last Pap Smear completed Patsy Barber [facility] 04/14/2024 09:45:[address] [facility] 04/12/2021 09:29:[address] [facility] 04/12/2021 11:06:24 Imaging Results Imaging Date Name Status LastModified by Organization Details LastModified Time 12/08/2023 US, obstetric, 2nd or 3rd trimester completed [facility] [address], [place], [address], 12/08/2023 18:09:07 12/08/2023 US, obstetric, transvaginal completed [facility] [address], [place], [address], 12/08/2023 18:09:19 12/08/2023 US, obstetric, 2nd or 3rd trimester completed [email or web address] [address], [place], [address], 12/08/2023 22:47:47 12/16/2023 US, obstetric, maternal evaluation + anatomy completed [address] [facility] [address] [place], [address], 12/17/2023 09:24:58 12/16/2023 US, obstetric, follow-up completed [address] [facility] [address] [place], [address], 12/22/2023 10:57:22 12/30/2023 US, obstetric, follow-up completed [address] [facility] [address] [place], [address], 12/31/2023 10:28:42 12/30/2023 US, obstetric, follow-up completed [address] [place], [address], 12/31/2023 10:28:15 02/08/2024 imaging/diagnost ic result completed LAST Information not available 02/12/2024 11:53:04 Procedure Notes None recorded. Medical Equipment None Reported. Allergies No known drug allergies Medications Name Sig Start Date Stop Date Status Note LastModified by Organization Details LastModified Time azithromyci n 250 mg tablet TAKE DIRECTED 06/07 completed Not Available Not Available Not Available sulfamethox azole 400 mg-trimetho prim 80 mg tablet TAKE 1 TABLET BY MOUTH EVERY 12 HOURS UNTIL ALL TAKEN 03/03 completed Not Available Not Available Not Available valacyclovi r 1 gram tablet 10/30 completed Not Available Not Available Not Available Anucort-HC 25 mg suppository UNWRAP AND INSERT 1 SUPPOSITO RY RECTALLY DAILY 06/07 completed Not Available Not Available Not Available phentermine 37.5 mg tablet Take 1 tablet every day by oral route for 90 days. 2023 active Not Available Not Available Not Avai lable methotrexat e sodium 25 mg/mL injection solution Inject 4.02mL by IM 06/07 completed Not Available Not Available Not Available sulfamethox azole 800 mg-trimetho prim 160 mg tablet TAKE 1 TABLET BY MOUTH TWICE DAILY FOR 7 DAYS 06/07 completed Not Available Not Available Not Available amoxicillin 500 mg tablet TAKE 1 TABLET BY MOUTH EVERY 8 HOURS FOR 5 DAYS 11/09 completed Not Available Not Available Not Available amoxicillin 875 mg tablet TAKE 1 TABLET BY MOUTH TWICE DAILY UNTIL ALL TAKEN 02/07 completed Not Available Not Available Not Available doxycycline monohydrate 100 mg capsule 06/07 completed Not Available Not Available Not Available cephalexin 500 mg capsule 02/07 completed Not Available Not Available Not Available progesteron e micronized 200 mg capsule 02/07 completed Not Available Not Available Not Available ibuprofen 600 mg tablet 02/07 completed Not Available Not Available Not Available fluoxetine 20 mg capsule TAKE 1 CAPSULE BY MOUTH EVERY DAY 04/10 completed Not Available Not Available Not Available amoxicillin 875 mg-potassiu m clavulanate 125 mg tablet TAKE 1 TABLET BY MOUTH TWICE DAILY FOR 7 DAYS 04/14 completed Not Available Not Available Not Available clindamycin phosphate 1 % topical solution APPLY 2 DROPS TO PROCEDURE SITE DAILY 03/28 completed Not Available Not Available Not Available oxycodone 5 mg tablet 02/07 completed Not Available Not Available Not Available methotrexat e sodium (PF) 25 mg/mL injection solution 06/07 completed Not Available Not Available Not Available nitrofurant oin monohydrate /macrocryst als 100 mg capsule Take 1 capsule every 12 hours by oral route for 5 days. 02/07 completed Not Available Not Available Not Available aspirin 10/30 completed Not Available Not Available Not Available 02/07 completed Not Available Not Available Not Available Aditya 10/30 completed Not Available Not Available Not Available Daily 10/30 completed Not Available Not Available Not Available Aditya Chewable Low Dose Aspirin 81 mg tablet 10/30 completed Not Available Not Available Not Available Contrave 8 mg-90 mg tablet,exte nded release TAKE 2 TABLETS BY MOUTH TWICE DAILY 06/07 completed Not Available Not Available Not Available Blisovi Fe 03/07 (28) 1 mg-20 mcg (21)/75 mg (7) tablet Take 1 tablet every day by oral route. active Not Available Not Available No t Available Vitals Date Recorded Body height Body mass index (BMI) Body weight Systolic blood pressure Diastolic blood pressure Provider Name and Address Organization Details Last Updated DateTime 12/08/2023 165.1 cm 33.8 kg/m2 21406.25 111 g 127 mm[Hg] 78 mm[Hg] [facility] 4 11:44:09 Date Recorded Body height Body mass index (BMI) Body weight Systolic blood pressure Diastolic blood pressure Provider Name and Address Organization Details Last Updated DateTime 01/12/2024 165.1 cm 33.8 kg/m2 82119.25 g 128 mm[Hg] 82 mm[Hg] [facility] 4 10:58:57 Date Recorded Body height Body mass index (BMI) Body weight Systolic blood pressure Diastolic blood pressure Provider Name and Address Organization Details Last Updated DateTime 02/08/2024 165.1 cm 34.1 kg/m2 66560.44 g 119 mm[Hg] 78 mm[Hg] [facility] 4 14:19:30 Date Recorded Body height Body mass index (BMI) Body weight Systolic blood pressure Diastolic blood pressure Provider Name and Address Organization Details Last Updated DateTime 04/14/2024 165.1 cm 31.6 kg/m2 31786.55 g 138 mm[Hg] 87 mm[Hg] [facility] 5 09:44:53 Social History Question Answer Notes LastModified by Organizat ion Details LastModified Time Tobacco Smoking Status Never Smoker Italia Veliz [facility] 06/14/2021 11:27:32 Do You Have An Advance Directive? No [email or web address] Information not available 06/14/2021 What Is Your Level Of Alcohol Consumption? None Information not available 04/12/2021 Are You Blind Or Do You Have Difficulty Seeing? No [email or web address] Information not available 06/14/2021 What Is Your Level Of Caffeine Consumption? Occasional Information not available 06/08/2023 How Much Tobacco Do You Chew? None Information not available 06/14/2021 In The 14 Days Before Symptom Onset, Have You Had Close Contact With A Laboratory-confir med COVID-19 While That Case Was Ill? No [email or web address] Information not available 06/14/2021 In The 14 Days Before Symptom Onset, Have You Had Close Contact With A Person Who Is Under Investigation For COVID-19 While That Person Was Ill? No [email or web address] Information not available 06/14/2021 Have You Been To An Area Known To Be High Risk For COVID-19? No [email or web address] Information not available 06/14/2021 Are You Deaf Or Do You Have Serious Difficulty Hearing? No [email or web address] Information not available 06/14/2021 What Type Of Diet Are You Following? REGULAR [email or web address] Information not available 06/14/2021 What Is The Highest Grade Or Level Of School You Have Completed Or The Highest Degree You Have Received? 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 Yes [email or web address] Information not available 06/14/2021 Do You Use Protection During Sex? No [email or web address] Information not available 06/14/2021 Do You Use Your Seat Belt Or Car Seat Routinely? Yes [email or web address] Information not available 06/14/2021 Do You Have Smoke And Carbon Monoxide Detectors In Your Home? Yes [email or web address] Information not available 06/14/2021 How Much Tobacco Do You Smoke? No [email or web address] Information not available 06/14/2021 Do You Feel Stressed (tense, Restless, Nervous, Or Anxious, Or Unable To Sleep At Night)? TS4075-8 [email or web address] Information not available 06/14/2021 Do You Use Any Illicit Or Recreational Drugs? No Information not available 04/12/2021 Do You Use Sunscreen Routinely? Yes [email or web address] Information not available 06/14/2021 Has Tobacco Cessation Counseling Been Provided? No [email or web address] Information not available 06/14/2021 Have You Used IV Drugs? No [email or web address] Information not available 06/14/2021 Do You Or Have You Ever Used Any Other Forms Of Tobacco Or Nicotine? No Information not available 06/14/2021 Sex: Unknown Functional Status Question Answer Note LastModified by Organizat ion Details LastModified Time Do you have difficulty walking or climbing stairs? No [email or web address] Information not available 06/14/2021 Are you able to walk? YESWOREST [email or web address] Information not available 06/14/2021 Are you able to care for yourself? Yes [email or web address] Information not available 06/14/2021 Do you have difficulty dressing or bathing? No [email or web address] Information not available 06/14/2021 What is your exercise level? Occasional [email or web address] Information not available 06/14/2021 Mental Status None recorded. Family History Relationship Description Onset Age of this Age Resolved Age Notes LastModified by Organization Details LastModified Time Father Carcinoma in situ of lung [email or web address] Not available 13:52:20 Father Seizure disorder [email or web address] Not available 03/10 13:52:21 Maternal Grandmother Hypercholest erolemia [email or web address] Not available 06/14 11:27:31 Maternal Grandmother Hypertensive disorder [email or web address] Not available 06/14 11:27:31 Maternal Grandfather Hypercholest erolemia [email or web address] Not available 06/14 11:27:31 Maternal Grandfather Hypertensive disorder [email or web address] Not available 06/14 11:27:31 Maternal Aunt Carcinoma of uterine cervix, invasive [email or web address] Not available 03/10 13:52:21 Maternal Aunt Female infertility [email or web address] Not available 13:52:21 Medical History Condition Response Allergies (Food, seasonal, environmental ) N Other N Breast Cancer N Drug/Latex Allergies/Reactions N Blood Transfusion N Dermatologic Disorders N Lung Disease N Defects or Inherited Disease N Breast Problem N Gestational Diabetes N Hematologic disorders N Anesthesia Complications N History of STI N Deep Vein Thrombosis N Polycystic ovary syndrome N Anxiety Disorder N Autoimmune disease N Arthritis N Infertility N Polyps N Acid Reflux (GERD) N History of abnormal pap N Cancer N Stroke N Varicosities N Neurologic/Epilepsy N Endometriosis N High Cholesterol N Headaches N Fibromyalgia N Kidney Disease N Heart Problems N Kidney or Bladder Problems N Thyroid Problems N GI Problems N Eating Disorder N Art (IVF or FET) N Psychiatric Illness N Ovarian Cancer N Diabetes N Pulmonary (TB, Asthma) N Hepatitis/Liver Disease N No Past Medical History N Eczema N Urinary Tract Infection N Abuse/Domestic Violence N Asthma Y Trauma/Violence N Depression/ depression N Heart Disease N Pre-Eclampsia N Hypertension N Osteoporosis N Thrombophilias N Gynecological History Statement/Question Response Abnormal Pap Y Flow Moderate Date of LMP 07/23/2023 On BCP's at Conception? N N Was last menstrual period normal N STIs/STDs N HPV Vaccine N Duration of Flow (days) 4 Current Control Method BCPs Date of control 11/30/2020 Frequency of Cycle (Q days) 28 Sexually Active? Y Age of first menstrual cycle 11 Date of Last Pap Smear 06/08/2023 Sexual Problems? N Desired Control Method BCPs LMP Definite N 09/16/2018 Obstetrics History GPAL:G 3 P 1 0 1 1 Type Value Full Term 1 Living 1 Ectopics 1 Total 3 Past Encounters Encounter ID Performer Location Encounter Start Date Encounter Closed Date Diagnosis/Indication Diagnosis SNOMED-CT Code Diagnosis ICD10 Code Diagnosis Note [id number] Cinthya Mora MD [place] [address] [address] 04/12/2021 10:48:06 04/12/2021 12:00:28 Routine care 541567336 Z34.92 History of loop electrosurgical excision procedure 9040695723 9102 Z98.890 History of SARS-CoV-2 29 50250546 95795852 Z86.16 [id number] Kathy Sood [place] [address],[place] [address] 04/12/2021 10:49:27 04/12/2021 11:59:51 Uncertain viability of 664474385 O36.80X9 Z3A.15 [id number] Gwen Lee [place] [address],[place] [address] 04/24/2021 13:52:03 04/24/2021 14:36:58 Previous operation to cervix affecting 41892593 O34.42 Z3A.16 [id number] Cinthya Mora MD [place] [address],[place] [address] 04/24/2021 13:53:38 04/24/2021 15:24:43 History of SARS-CoV-2 3349004363 89250434 Z86.16 History of loop electrosurgical excision procedure 6803459790 9102 Z98.890 Routine an tenatal care 971868803 Z34.92 [id number] [address],[place] [address] 05/14/2021 09:28:55 05/14/2021 10:55:33 screening [id number] Z36.3 [id number] Cinthya Mora MD [place] [address],[place] [address] 05/14/2021 09:30:30 05/14/2021 10:55:03 Routine care 441961373 Z34.92 History of loop electrosurgical excision procedure [id number] 9102 Z98.890 History of SARS-CoV-2 29 [id number] Z86.16 [id number] Norma Rogers CNM [place] [address],[place] [address] 06/14/2021 11:09:35 06/14/2021 11:53:58 Routine care 360351025 Z34.92 [id number] [facility] [address],[place] [address] 06/18/2021 11:52:34 06/18/2021 12:43:29 History of SARS-CoV-2 3592821830 71258218 Z86.16 Z3A.24 [id number] Norma Rogers [facility] [address],[place] [address] 07/12/2021 09:18:02 07/12/2021 09:52:10 Routine care 426203869 Z34.92 [id number] Kathy Sood [place] [address],[place] [address] 07/12/2021 09:36:53 07/12/2021 10:27:13 Pre-existing maternal disease complicating [id number] 6106 O99.891 U07.1 Z86.16 Z3A.28 [id number] Cinthya Mora MD [place] [address],[place] [address] 07/23/2021 14:06:42 07/23/2021 14:50:41 Routine care 254616253 Z34.92 [id number] [facility] [address],[place] [address] 08/13/2021 09:23:07 08/13/2021 09:56:03 Pre-existing maternal disease complicating 4138940170 6106 O99.891 U07.1 Z86.16 Z3A.32 [id number] Cinthya Mora MD [place] [address],[place] [address] 08/13/2021 09:24:08 08/13/2021 10:33:34 Routine care 134742340 Z34.92 Bilateral carpal tunnel syndrome 2085657149 [id number] G56.03 [id number] Cinthya Mora MD [place] [address],[place] [address] 08/27/2021 12:08:53 08/27/2021 13:32:42 Routine care 644354894 Z34.92 [id number] Kaelyn Gómez [facility] [address],[place] [address] 08/28/2021 16:13:04 08/28/2021 16:49:51 Routine care 392464938 Z34.92 BP check [id number] Norma Rogers [facility] [address],[place] [address] 08/30/2021 13:45:42 08/30/2021 14:32:41 Routine care 776609966 Z34.92 [id number] Norma Rogers [facility] [address],[place] [address] 09/06/2021 11:09:12 09/06/2021 11:32:49 Routine care 063254536 Z34.92 [id number] Pepe Monae MD [place] [address],[place] [address] 09/20/2021 10:48:04 09/20/2021 11:47:03 Postoperative care 522412965 Z48.89 This patient is a 30-year-ol d female who presents for postop follow-up. She is 1 week postop from a delivery. Her incision is clean dry and intact. She has no complaints . Her bleeding is minimal. She denies any nausea, vomiting, fever, chills. She denies any chest pain or shortness of breath. Her baby is doing well. Her mood is good. [id number] Pepe Monae MD [place] [address],[place] [address] 10/11/2021 10:07:12 10/11/2021 10:58:17 Contraception care management 508904104 Z30.9 care 12904277 8 Z39.2 this patient is a 30-year-ol d female who presents for follow-up. Her mood is good. Her baby is good. She has stopped bleeding. She has not had sex. She was to oral contracept mago pills. She is bottle feeding. She return in 3 months for annual exam. [id number] Cinthya Mora MD [place] [address],[place] [address] 10/30/2021 15:00:05 11/01/2021 11:12:44 depression 79330433 F53.0 [id number] Cinthya Mora MD [place] [address],[place] [address] 03/03/2022 15:40:36 03/04/2022 16:24:00 Gynecologic examination 35345667 Z01.419 Lack of energy 185481902 R53.83 Weight gain 4751420 R63. 5 depression 58 491619 F53.0 Surveillan ce of oral contraception 119240714 Z30.41 History of abnormal cervical Papanicolaou smear 657827104 Z87.42 [id number] JUANITA Downey [place] [address],[facility] [place] [address] 03/28/2022 10:32:33 03/28/2022 14:07:04 Obesity 733224861 E66.9 31yo [id number] sents for initial weight management consultati onShe is currently at her highest weight, 191lbs - BMI 31.9Her weight gain has been associated with recent , she has a 6 month old at home. Formula feeding.Sh e has tried phentermin e in the past, lost 46lbs. did not maintain the loss.She eats 3 meals a day, no sugary beverages. No binge eatingOfte n eats out / fast foodsNo current exerciseSl eeps 9 hours per night, no snoringPas t medical hx : depression . Currently weaning off of prozac. She is feeling well. Denies any depression or anxiety symptoms.P ast surgical hx : c/sMedicat ions : loestrinSh e denies any drug use. occasional alcoholFam jenna hx: Father with alcoholism and adenocarci noma We discussed the weight management program in-depth and next stepsWe discussed nutrition, she will schedule with powerhouse tender. Encouraged tracking on myGlamorous Travelp alExercise recommenda tions discussed, 150 minutes of moderate to intense exercise per week, with 2 strength training sessions per week.-EKG ordered-La bs ordered-Sylvie eticitomas appointmen t scheduled- She will check her insurance for obesity medication coverage-R TC for f/u in 2 weeks to discuss medication options Time spent in visit is a total of 45 mins with at least 50% of visit consisting of counseling and review of plan of care. [id number] JUANITA Downey [place] [address],[place] [address] 04/10/2022 16:19:16 04/10/2022 17:35:27 Obesity 896112460 E66.9 Reviewed recent labs - wnlShe would like additional thyroid testing and B12 lab, orderedWe discussed recent EKG (sinus bradycardi a with sinus arrhythmia - normal EKG). We did discuss cardiology referral due to bradycardi a, she has appointmen t scheduled. We reviewed all obesity medication options in-depth todayDiscu ssed R/B/A/SE of all methodsShe would like to start contrave, she denies any contraindi cations to this. We discussed potential negative side effects, discussed potential cardiac side effects. Patient verbalized understand ing and would like to proceed.we discussed contrave dosing, take 1 tablet by mouth QAM x 1 week, take 1 tablet by mouth BID x 1 week, take 2 tablets by mouth QAM and 1 tablet QPM, then 2 tablets by mouth BID (max dose of 4 tablets per day).She will call the office with any questions or concerns. ED precaution s discussedC ontinue meeting with powerhouse tender, she has a plan to start exercising f/u in 4 weeks Time spent in visit is a total of 40 mins with at least 50% of visit consisting of counseling and review of plan of care. Fatigue 91383359 R53.83 [id number] JUANITA Downey [place] [address],[facility] [place] [address] 05/02/2022 11:10:06 05/05/2022 17:27:20 Obesity 363534663 E66.9 Down 6lbs since HILARIO!Doing well on contrave, desires to continueSh e has met with the powerhouse tender, making healthier food choices. Eating smaller portions, counting caloriesSh e has an exercise plan in placeConti nue on contrave, R/B/A/dosi ng discussedR TC in 1 month for f/u Time spent in visit is a total of 20 mins with at least 50% of visit consisting of counseling and review of plan of care. [id number] [facility] [address],[place] [address] 03/10/2023 13:52:12 03/10/2023 15:42:51 Threatened miscarriage 99324579 O20.0 O36.80X0 Z3A.01 [id number] DEJA SANCHEZ MD [place] [address],[place] [address] 03/10/2023 14:36:44 03/10/2023 15:30:49 of unknown location [id number] 04798 O26.90 - LMP unknown- tubal ring suggestive of probably ectopic on US today, no IUP seen, no YS/embryo- will repeat hCG, as well as CBC and CMP- repeat US in 1 week- discussed medical (methotrex ate) vs surgical (salpingec jose) management if ectopic confirmed- warning signs and return precaution s reviewed [id number] [facility] [address],[place] [address] 03/16/2023 15:27:58 03/16/2023 16:24:21 Ectopic [id number] O00.90 Z3A.01 [id number] DEJA SANCHEZ MD [place] [address],[place] [address] 03/16/2023 16:25:38 03/17/2023 16:07:00 Ectopic 03913995 O00.90 - pelvic US x2 demonstrat es tubal ring with no YS or embryo, suspicious for ectopic - poor rise in hCG indicative of nonviable , no IUP seen on recent US- discussed likely ectopic and treatment options including methotrexa te vs unilateral salpingect ej- patient elects for methotrexa te, CBC/CMP wnl last week- discussed warning signs of tubal rupture including heavy vaginal bleeding and abdominal pain, which would require emergent salpingect ej- patient to return to office tomorrow for methotrexa te injection, will trend hCGs to follow [id number] Irene Cunningham [place] [address],[place] [address] 03/17/2023 10:19:52 03/17/2023 11:17:03 Ectopic 93071174 O00.90 [id number] DEJA SANCHEZ MD [place] [address],[place] [address] 06/08/2023 15:34:55 06/12/2023 13:34:11 Gynecologic examination 25622905 Z01.419 [facility]- Cervical cancer screening: Pap smear obtained today, will follow up on the results with the patient as they become available- Breast cancer screening: mammogram not indicated- Colon cancer screening: not indicated- HPV immunizati on: no- STD testing: declined- hereditary cancer screening: does not qualify for testing Weight loss 60836529 R63 .4 - would like to restart phentermin e given good results prior to last - will order EKG prior to initiation [id number] Lucretia Taylorarin [place] [address],[place] [address] 09/18/2023 09:02:01 09/18/2023 09:46:08 [id number] DEJA SANCHEZ MD [place] [address],[place] [address] 09/18/2023 09:02:18 09/18/2023 10:55:54 test positive 265874196 Z32.01 1. Exam today within normal limits.2. Ultrasound today confirms GA and viability. EDC . GC/Clamydi a testing done: will f/u as indicated. 4. ACOG guidelines and plan of care for reviewed with patient. All questions answered.5 . Return to office at 12 weeks for new OB visit6. Will need new OB labs at next visit.7. Genetic screening: declines. [id number] [facility] [address],[place] [address] 10/13/2023 14:00:40 10/13/2023 15:27:22 screening 171343146 Z36.82 Z3A.11 [id number] DEJA SANCHEZ MD [place] [address],[place] [address] 10/13/2023 14:01:08 10/13/2023 15:47:32 Routine care 307191437 Z34.91 Uterine sc ar from previous surgery affecting 19105549 O34.29 Gestation period, 11 weeks 77103668 Z3A.11 [id number] DEJA SANCHEZ MD [place] [address],[place] [address] 11/10/2023 14:46:17 11/10/2023 15:45:37 Past history of section 244255753 Z98.890 - desires RCS with tubal ligation Gestation period, 15 weeks 9845974 Z3A.15 - continue PNV [id number] Lucretia Donahue [place] [address],[place] [address] 12/08/2023 10:11:33 12/08/2023 12:00:32 screening 797869246 Z36.3 Z3A.19 [id number] DEJA SANCHEZ MD [place] [address],[place] [address] 12/08/2023 11:21:04 12/08/2023 14:22:58 Disorder of uterus 42095842 N85.9 - [facility] consultati on for further evaluation of thin anterior uterine wall at site of prior hysterotom y Past pregn myla history of section 741466835 Z98.890 - desires RCS with tubal ligation History of loop electrosurgical excision procedure 0320316330 9102 Z98.890 - CL wnl at [facility] Gestation period, 19 weeks 73125321 Z3A.19 [id number] DEJA SANCHEZ MD [place] [address],[place] [address] 01/12/2024 10:55:03 01/18/2024 11:12:53 390169000 R99 - demise following cervical insufficie ncy leading to intraamnio tic infection and labor- discussed implicatio n of classical c section on any future pregnancie s, including late delivery at ~36 weeks. Also recommend AT LEAST 1 year before attempting again due to known thin lower uterine segment- due to prematurit y at 23 weeks Postoperative care 29390 9007 Z48.89 S/pclassic alc section on . Incision well-heale d without any signs of infection2 . Family planning options discussed. She plans to use control pills to prevent . She will continue to abstain from intercours e until her 6wk visit.3. RTC 4wks for post-partu m check Cervical incompetence 17 524441 N88.3 - s/p 2nd trimester loss at 23 weeks due to cervical insufficie ncy followed by possible intraamnio tic infection and labor- do not suspect labor prior originally found cervical dilation as patient denies cramping or contractio ns until after inpatient admission- discussed history indicated cerclage in late 1st trimester with next if patient desires future [id number] Patsy Barber [place] [address],[place] [address] 01/19/2024 10:05:51 01/19/2024 11:24:36 Urinary symptoms 344154124 R39.9 [id number] DEJA SANCHEZ MD [place] [address],[facility] [place] [address] 02/08/2024 14:13:26 02/11/2024 14:07:50 Difficulty maintaining weight loss 000630497 E66.9 - patient reports difficulty with weight loss- would like to restart phentermin e, has had success in the past- will order EKG to evaluate prior to restarting Contracept ion care management 757067133 Z30.9 - previously on [place], no issues- would like to restart, no contraindi cations care 76977413 8 Z39.0 S/p repeatclas sicalc section 6 weeks ago complicate d by demise at 23 weeks here today for a visit.1. Patient recovering well2. Interested in OCPs for contracept ion at this time. Risks, benefits, and alternativ es reviewed with the patient3. Patient instructed to follow up in 6-12 months for well woman exam unless need arises prior [id number] DEJA SANCHEZ MD [place] [address],[facility] [place] [address] 04/14/2024 09:33:55 04/14/2024 10:04:49 Mass of right breast 3153608020 5329417 N63.10 - upper midline breast on chest wall with new tenderness and fullness- tenderness on exam, no distinct mass but does have some fullness in the area of tenderness - mother with hx of breast cysts- will order mammogram to evaluate Health Concerns Section Related Observation LastModified by Organization Detai ls LastModified Time None Recorded Concern Status LastModified by Organization Details LastModified Time None Recorded Advance Directives Directive N: Payers Encounter Date Sequence Insurance Name Policy Number Policy Caldera Covered Member ID Caldera Member ID Guarantor Name 12/08/2023 1 [place] [id number] Joshua Schmitt [id number] Kerry Keshia 01/12/2024 1 [place] [id number] Joshua Schmitt [id number] Kerry Keshia 01/19/2024 1 [place] [id number] Joshua Schmitt [id number] Kerry Keshia 02/08/2024 1 [place] [id number] Joshua Schmitt [id number] Kerry Keshia 04/14/2024 1 [place] [id number] Joshua Schmitt [id number] Kerrymichelle Avalosf Notes Date Note Type Note Provider Name and Address Organization Details Recorded Time 4 text/html s/p C/S 01/01 complicated by labor, cervical insufficiency and demise. She presents today for her incision check. Her postop course has been unremarkable. She has minimal spotting, denies pain, fever or any other concerning symptoms. Her mood is appropriate. Per chart review from stay at [facility] and discussion with [facility], patient presents for follow up US on 12/29 and was noted to have cervical dilation visible on ultrasound. She was admitted for further evaluation and consideration of cerclage placement, however on repeat speculum exam 12/30, she was noted to have membranes protruding into the vagina. She was not a candidate for cerclage at that time due to advanced dilation and concern for infection. She then began noticing back pain starting Thursday night 12/31, which persistent after bowel regimen and rest. She was then found to be isela and underwentclassical c section.Op note reports malodorous amniotic fluid and a thin lower uterine segment but no uterine window. DEJA SANCHEZ MD [address], [place], [address], [facility] 01/13/2024 23:52:10 4 text/html S/Pclassical repeatCS on 01/02/24 at 23 weeks gestation. was complicated by cervical insufficiency and demise. B Patient denies any specific problems since delivery. Patient overall feeling well. Has not had a period yet. No bleeding. Does have some abnormal discharge and bladder spasms. Bowel and bladder function are normal. Pap due 05/2028. Denies any signs or symptoms of depression. Is coping with parenting well. Patient has not been sexually active since delivery. Patient is interested in contraception at this time. She would also like to restart phentermine for weight loss. She has had good results previously with phentermine. No recent EKG. DEJA SANCHEZ MD [address], [place], [address], [facility] 02/08/2024 23:07:37 5 text/html Patient presents for breast exam for new right breast tenderness. She noticed it in the shower, also feels linn than left side. No previous breast issues. Mother with hx of breast cysts. DEJA SANCHEZ MD [address], [place], [address], [facility] 04/14/2024 10:04:33 OBGyn Episode Ob Episode Information Episode Created Date Number of Fetuses Patient Bloodtype Patient rh Status Prepregnancy Weight lbs Domestic Partner Domestic Partner Phone Father Name Research And Development Specialist Status 04/12/19 22 1 A Positive CLOSED Fetus Data First Name Last Name Admitted to NICU Weight (g) Sex Living Outcome Pediatric Complications Fetus ID Race Codes Race Delivery Type Gabrielanyla ilir 3260.19 25 M true Full Term [id number] Primary Problems Problem Notes declines COVID vaccines Problem Name Start Date End Date Resolution Snomed Code Not e History of SARS-CoV-2 74828060 [id number] ASA, growth US History of loop electrosurgical excision procedure [id number] CL at 1 6 and 20w Harpreet Calculation Initial Harpreet Date Initial Exam Date Initial Exam Provider Initial Ultrasound Date Last Menstrual Period Date Ultra Sound Weeks Gestation 10/03/2021 04/12/2021 04/12/202101/0401/04/2021 15 Eighteen To Twenty Week Harpreet Update Ultra Sound Date Fundal Height At Umbil Quickening Date Ultra Sound Latest Weeks Gestation Final Harpreet Confirmed By Final Harpreet Confirmed Date Final Harpreet Date Ultra Sound Latest Days Gestation 0 [email or web address] 04/12/2021 10/04/19 22 0 Pre- Flowsheet Flowsheet Date 04/12/2021 Moraes Score Blood Edema Fundus Height Fundus Units Glucose Ketones Leukocytes Nitrite Labor Signs Protein Cervic Dilation Cervic Effacement Cervic Station neg none none trace Type Weight in lbs Pre/Post Dialysis Refused Weight 175.149681371992 BP Diastolic BP Location Tested BP Systolic BP Type 94 141 88 130 Fetus Heart Rate Present Fetus Movement A No Comments Kerry is a G1 at 14w by MEI P here for care. Transfer from [place]. She is unvaccinated for COVID and plans to remain so. She had COVID for the second time 03/10/21. She is taking ASA. Discussed growth US. FOB has sister with [facility]. They decline NIPT and CF/SMA. PNL today. Ob education done. CLs for h/o LEEP. Flowsheet Date 04/12/2021 Moraes Score Blood Edema Fundus Height Fundus Units Glucose Ketones Leukocytes Nitrite Labor Signs Protein Cervic Dilation Cervic Effacement Cervic Station Type Weight in lbs Pre/Post Dialysis Refused BP Diastolic BP Location Tested BP Systolic BP Type Fetus Heart Rate Present Fetus Movement Comments Flowsheet Date 04/24/2021 Moraes Score Blood Edema Fundus Height Fundus Units Glucose Ketones Leukocytes Nitrite Labor Signs Protein Cervic Dilation Cervic Effacement Cervic Station Type Weight in lbs Pre/Post Dialysis Refused BP Diastolic BP Location Tested BP Systolic BP Type Fetus Heart Rate Present Fetus Movement Comments Flowsheet Date 04/24/2021 Moraes Score Blood Edema Fundus Height Fundus Units Glucose Ketones Leukocytes Nitrite Labor Signs Protein Cervic Dilation Cervic Effacement Cervic Station neg none none neg Type Weight in lbs Pre/Post Dialysis Refused Weight 176.240544174788 BP Diastolic BP Location Tested BP Systolic BP Type 77 124 Fetus Heart Rate Present A 145 Fetus Movement A Yes Comments Doing great! NO concerns. CL today 3.2cm. Anatomy US next visit with repeat CL. Flowsheet Date 05/14/2021 Moraes Score Blood Edema Fundus Height Fundus Units Glucose Ketones Leukocytes Nitrite Labor Signs Protein Cervic Dilation Cervic Effacement Cervic Station Type Weight in lbs Pre/Post Dialysis Refused BP Diastolic BP Location Tested BP Systolic BP Type Fetus Heart Rate Present Fetus Movement Comments Flowsheet Date 05/14/2021 Moraes Score Blood Edema Fundus Height Fundus Units Glucose Ketones Leukocytes Nitrite Labor Signs Protein Cervic Dilation Cervic Effacement Cervic Station neg none none trace Type Weight in lbs Pre/Post Dialysis Refused Weight 184.650724017629 BP Diastolic BP Location Tested BP Systolic BP Type 79 121 Fetus Heart Rate Present A 160 Fetus Movement A No Comments Doing great, feels good. SOB easier with exertion, but no CP and always resolves with rest. US today anatomy complete and wnl. Plan growth US for covid. CL 3.4cm. Precautions given. Flowsheet Date 06/14/2021 Moraes Score Blood Edema Fundus Height Fundus Units Glucose Ketones Leukocytes Nitrite Labor Signs Protein Cervic Dilation Cervic Effacement Cervic Station neg none 24 none trace Type Weight in lbs Pre/Post Dialysis Refused Weight 195.910341360232 BP Diastolic BP Location Tested BP Systolic BP Type 78 130 Fetus Heart Rate Present A 142 Fetus Movement A Yes Comments patient is having some disch arge. doing well, plan gct, us on for growth hx covid, rpt q 4 weeks, precautions reviewed f/u 4 weeks Flowsheet Date 06/18/2021 Moraes Score Blood Edema Fundus Height Fundus Units Glucose Ketones Leukocytes Nitrite Labor Signs Protein Cervic Dilation Cervic Effacement Cervic Station Type Weight in lbs Pre/Post Dialysis Refused BP Diastolic BP Location Tested BP Systolic BP Type Fetus Heart Rate Present Fetus Movement Comments Flowsheet Date 07/12/2021 Moraes Score Blood Edema Fundus Height Fundus Units Glucose Ketones Leukocytes Nitrite Labor Signs Protein Cervic Dilation Cervic Effacement Cervic Station neg none none trace Type Weight in lbs Pre/Post Dialysis Refused Weight 204.006515826800 BP Diastolic BP Location Tested BP Systolic BP Type 73 113 Fetus Heart Rate Present Fetus Movement A Yes Comments doing well, has growth at 09 00, precautions reviewed, ok for tdap, plans a to z peds. f/u 2 weeks Flowsheet Date 07/12/2021 Moraes Score Blood Edema Fundus Height Fundus Units Glucose Ketones Leukocytes Nitrite Labor Signs Protein Cervic Dilation Cervic Effacement Cervic Station Type Weight in lbs Pre/Post Dialysis Refused BP Diastolic BP Location Tested BP Systolic BP Type Fetus Heart Rate Present Fetus Movement Comments Flowsheet Date 07/23/2021 Moraes Score Blood Edema Fundus Height Fundus Units Glucose Ketones Leukocytes Nitrite Labor Signs Protein Cervic Dilation Cervic Effacement Cervic Station neg none 31 none trace Type Weight in lbs Pre/Post Dialysis Refused Weight 208.186958707050 BP Diastolic BP Location Tested BP Systolic BP Type 74 119 Fetus Heart Rate Present A 140 Fetus Movement A Yes Comments Doing great. No concerns. GC T wnl. Tdap done. Flowsheet Date 08/13/2021 Moraes Score Blood Edema Fundus Height Fundus Units Glucose Ketones Leukocytes Nitrite Labor Signs Protein Cervic Dilation Cervic Effacement Cervic Station Type Weight in lbs Pre/Post Dialysis Refused BP Diastolic BP Location Tested BP Systolic BP Type Fetus Heart Rate Present Fetus Movement Comments Flowsheet Date 08/13/2021 Moraes Score Blood Edema Fundus Height Fundus Units Glucose Ketones Leukocytes Nitrite Labor Signs Protein Cervic Dilation Cervic Effacement Cervic Station neg trace 34 3+ trace Type Weight in lbs Pre/Post Dialysis Refused Weight 210.426328083582 BP Diastolic BP Location Tested BP Systolic BP Type 72 113 Fetus Heart Rate Present A 145 Fetus Movement A Yes Comments Doing well, no concerns exce pt carpal tunnel, discussed comfort measures. US today 46%. Preregistration scheduled. Flowsheet Date 08/27/2021 Moraes Score Blood Edema Fundus Height Fundus Units Glucose Ketones Leukocytes Nitrite Labor Signs Protein Cervic Dilation Cervic Effacement Cervic Station neg trace 38 none trace Type Weight in lbs Pre/Post Dialysis Refused Weight 216.239039616958 BP Diastolic BP Location Tested BP Systolic BP Type 85 129 Fetus Heart Rate Present A 145 Fetus Movement A Yes Comments Doing well. Carpal tunnel to lerable. Growth US two weeks. IS S>D. If LGA one more US 2w after that. Labor precautions given. GBS 2w. Flowsheet Date 08/28/2021 Moraes Score Blood Edema Fundus Height Fundus Units Glucose Ketones Leukocytes Nitrite Labor Signs Protein Cervic Dilation Cervic Effacement Cervic Station Type Weight in lbs Pre/Post Dialysis Refused BP Diastolic BP Location Tested BP Systolic BP Type 87 136 Fetus Heart Rate Present Fetus Movement Comments Pt here for BP check due to sudden change in bilateral lower extremity edema. 1+ pitting edema noted bilaterally. Pt also c/o tingling and an abnormal feeling in her right calf. Pt reports family hx of DVT. BP 136/87. Pt also c/o CANNON. Pt denies epigastric pain. Pt c/o floater in her visual field but states she experienced that several days ago. Per AD, pt to [facility] for stat lower extremity venous dopplers and Outpatient Lab for PIH labs. Pt verbalized understanding of instructions and was given printed orders. Kaelyn Hughes RN Flowsheet Date 08/30/2021 Moraes Score Blood Edema Fundus Height Fundus Units Glucose Ketones Leukocytes Nitrite Labor Signs Protein Cervic Dilation Cervic Effacement Cervic Station neg trace none trace Type Weight in lbs Pre/Post Dialysis Refused Weight 216.748308855297 BP Diastolic BP Location Tested BP Systolic BP Type 79 129 Fetus Heart Rate Present Fetus Movement A Yes Comments OB problem follow up on bloo d pressure, headaches and swelling. off and on headache and swelling, minimal swelling today has been off work for a few days, bp normotensive, labs wnl, plan 24 hour urine f/u one week precautions reviewed Flowsheet Date 09/06/2021 Moraes Score Blood Edema Fundus Height Fundus Units Glucose Ketones Leukocytes Nitrite Labor Signs Protein Cervic Dilation Cervic Effacement Cervic Station neg trace 36 none trace 80% -2 Type Weight in lbs Pre/Post Dialysis Refused Weight 217.458896099417 BP Diastolic BP Location Tested BP Systolic BP Type 81 134 Fetus Heart Rate Present A 145 Fetus Movement A Yes Comments patient is having some swell ing. precautions reviewed, gbs today doing well, f/u one week Flowsheet Date 09/20/2021 Moraes Score Blood Edema Fundus Height Fundus Units Glucose Ketones Leukocytes Nitrite Labor Signs Protein Cervic Dilation Cervic Effacement Cervic Station Type Weight in lbs Pre/Post Dialysis Refused Weight 202.324356282392 BP Diastolic BP Location Tested BP Systolic BP Type 86 R arm 130 sitting Fetus Heart Rate Present Fetus Movement Comments Menstrual History Last Menstrual Date Menses Monthly On Bcp Conception Prior Menses Frequency Hcg Plus Date Menarche Onset Age 1101/04/2021 Genetic Screening And Infection History Question Response Note Mental Retardation/Autism false Patient's Age Will Be 35 Yea rs Or Older At Estimated Date of Delivery false Thalassemia (Citizen Of The [place], North Korean, Mediterranean, Or Background): MCV < 80 false Neural Tube Defect (Meningom yelocele, Spina Bifida, Or Anencephaly) false Congenital Heart Defect false Down Syndrome true FOB sister Ceasar (eg, Church, Cajun, Malaysian-[place]) f alse Dani Disease false Sickle Cell Disease Or Trait () false Hemophilia Or Other Blood Disorders false Muscular Dystrophy false Cystic Fibrosis false Benito's Ch[place] false Intellectual Disability/Autism false If Yes, Was Person Tested For Fragile X? false Other Inherited Genetic Or Chromosomal Disorder false Maternal Metabolic Disorder (eg, Type 1 Diabetes , PKU) false Patient Or Baby's Father Had A Child With Defects Not Listed Above false Recurrent Loss, Or A Stillbirth false Medications (including Suppl ements, Vitamins, Herbs, OTC Drugs), Illicit/Recreational Drugs, Alcohol true If Yes, Agent(s) And Strength/Dosage false Any Other Genetic History false Live With Someone With TB Or Exposed To TB false Patient Or Partner Has History Of Genital Herpes false Rash Or Viral Illness Since Last Menstrual Perio d false History Of STD, Gonorrhea, Chlamydia, HPV, Syphi lis false Other Infection History false History of HIV false History of Hepatitis false Prior GBS-infected child false Hemoglobinopathy Or Carrier false Other Structural Defect false Recent Travel History Outside of Country false Delivery Information Delivery Date Delivery Type Labor Anesthesia Weeks Gestation Incision Type Labor Labor Length Hrs Delivered By Post Complications Tubal Sterilization Discharge Date Comments [facility] inal 37 Low Transvers e false Pepe Monae MD failure to descend Discharge Information Feeding Method Contraceptive Method Maternal HG B and HCT Levels Ob Episode Information Episode Created Date Number of Fetuses Patient Bloodtype Patient rh Status Prepregnancy Weight lbs Domestic Partner Domestic Partner Phone Father Name Research And Development Specialist Status 10/13/19 24 1 A Positive 197.4 CLOSED Fetus Data First Name Last Name Admitted to NICU Weight (g) Sex Living Outcome Pediatric Complications Fetus ID Race Codes Race Delivery Type Christel F Demise [id number] Repeat Problems Problem Notes [facility]: 12/15 consult, u/s Problem Name Start Date End Date Resolution Snomed Code Not e Disorder of uterus [id number] 1 -2mm of uterine wall underlying bladder, thinning at [facility] 12/09/23 Past history of section [id number] Plan for re peat, desires tubal Harpreet Calculation Initial Harpreet Date Initial Exam Date Initial Exam Provider Initial Ultrasound Date Last Menstrual Period Date Ultra Sound Weeks Gestation 04/28/2024 10/13/2023 09/18/2023 07/23/2023 8 Eighteen To Twenty Week Harpreet Update Ultra Sound Date Fundal Height At Umbil Quickening Date Ultra Sound Latest Weeks Gestation Final Harpreet Confirmed By Final Harpreet Confirmed Date Final Harpreet Date Ultra Sound Latest Days Gestation 0 [email or web address] 10/13/2023 04/29/19 25 0 Pre-corey Flowsheet Flowsheet Date 10/13/2023 Moraes Score Blood Edema Fundus Height Fundus Units Glucose Ketones Leukocytes Nitrite Labor Signs Protein Cervic Dilation Cervic Effacement Cervic Station Type Weight in lbs Pre/Post Dialysis Refused Weight 193.84154263629 BP Diastolic BP Location Tested BP Systolic BP Type 75 128 Fetus Heart Rate Present A 155 Fetus Movement Comments Presents to establish prenat al care. No issues since last visit. No nausea, cramping or bleeding. NT/NB wnl. Declines NIPT. PMH significant for hx of ectopic , treated with methotrexate in 02/2023. Otherwise, hx of primary c section in 2021. RTC 4 weeks. Flowsheet Date 11/10/2023 Moraes Score Blood Edema Fundus Height Fundus Units Glucose Ketones Leukocytes Nitrite Labor Signs Protein Cervic Dilation Cervic Effacement Cervic Station trace none none trace Type Weight in lbs Pre/Post Dialysis Refused 198.992766066571 BP Diastolic BP Location Tested BP Systolic BP Type 74 L arm 128 sitting Fetus Heart Rate Present A 155 Fetus Movement A No Comments Doing well, feeling good. Fo und out she's having a girl on outside ultrasound! No cramping or bleeding. Discussed anatomy US for next visit. RTC 4 weeks. Flowsheet Date 12/08/2023 Moraes Score Blood Edema Fundus Height Fundus Units Glucose Ketones Leukocytes Nitrite Labor Signs Protein Cervic Dilation Cervic Effacement Cervic Station Type Weight in lbs Pre/Post Dialysis Refused BP Diastolic BP Location Tested BP Systolic BP Type Fetus Heart Rate Present Fetus Movement Comments Flowsheet Date 12/08/2023 Moraes Score Blood Edema Fundus Height Fundus Units Glucose Ketones Leukocytes Nitrite Labor Signs Protein Cervic Dilation Cervic Effacement Cervic Station neg none none trace Type Weight in lbs Pre/Post Dialysis Refused 203.47091508564 BP Diastolic BP Location Tested BP Systolic BP Type 78 L arm 127 sitting Fetus Heart Rate Present A 145 Fetus Movement A Yes Comments Patient c/o of lower abdomen pressure. Good movement. No cramping or bleeding. Having a girl! Anatomy complete and normal today. EFW 58%. Area of thinning between the bladder and uterus noted on exam, measuring 1-2mm thick. Will send MFM consultation for further evaluation. RTC 4 weeks. Flowsheet Date 01/12/2024 Moraes Score Blood Edema Fundus Height Fundus Units Glucose Ketones Leukocytes Nitrite Labor Signs Protein Cervic Dilation Cervic Effacement Cervic Station Type Weight in lbs Pre/Post Dialysis Refused Weight 203.232559830913 BP Diastolic BP Location Tested BP Systolic BP Type 82 L arm 128 sitting Fetus Heart Rate Present Fetus Movement Comments Flowsheet Date 01/19/2024 Moraes Score Blood Edema Fundus Height Fundus Units Glucose Ketones Leukocytes Nitrite Labor Signs Protein Cervic Dilation Cervic Effacement Cervic Station Type Weight in lbs Pre/Post Dialysis Refused BP Diastolic BP Location Tested BP Systolic BP Type Fetus Heart Rate Present Fetus Movement Comments Flowsheet Date 02/08/2024 Moraes Score Blood Edema Fundus Height Fundus Units Glucose Ketones Leukocytes Nitrite Labor Signs Protein Cervic Dilation Cervic Effacement Cervic Station Type Weight in lbs Pre/Post Dialysis Refused Weight 205.378272258369 BP Diastolic BP Location Tested BP Systolic BP Type 78 L arm 119 sitting Fetus Heart Rate Present Fetus Movement Comments Menstrual History Last Menstrual Date Menses Monthly On Bcp Conception Prior Menses Frequency Hcg Plus Date Menarche Onset Age 0607/23/2023 Delivery Information Delivery Date Delivery Type Labor Anesthesia Weeks Gestation Incision Type Labor Labor Length Hrs Delivered By Post Complications Tubal Sterilization Discharge Date Comments 4 Sponta neous 23.2 Classical true Discharge Information Feeding Method Contraceptive Method Maternal HG B and HCT Levels Ob Episode Information Episode Created Date Number of Fetuses Patient Bloodtype Patient rh Status Prepregnancy Weight lbs Domestic Partner Domestic Partner Phone Father Name Research And Development Specialist Status 06/08/19 24 1 CLOSED Fetus Data First Name Last Name Admitted to NICU Weight (g) Sex Living Outcome Pediatric Complications Fetus ID Race Codes Race Delivery Type Ectopic [id number] Harpreet Calculation Initial Harpreet Date Initial Exam Date Initial Exam Provider Initial Ultrasound Date Last Menstrual Period Date Ultra Sound Weeks Gestation 0 Eighteen To Twenty Week Harpreet Update Ultra Sound Date Fundal Height At Umbil Quickening Date Ultra Sound Latest Weeks Gestation Final Harpreet Confirmed By Final Harpreet Confirmed Date Final Harpreet Date Ultra Sound Latest Days Gestation 0 0 Menstrual History Last Menstrual Date Menses Monthly On Bcp Conception Prior Menses Frequency Hcg Plus Date Menarche Onset Age Delivery Information Delivery Date Delivery Type Labor Anesthesia Weeks Gestation Incision Type Labor Labor Length Hrs Delivered By Post Complications Tubal Sterilization Discharge Date Comments 4 Discharge Information Feeding Method Contraceptive Method Maternal HG B and HCT Levels
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
--- OUTSIDE RECORDS SUMMARY | 2024-04-28 13:17 | XMS_ITS | Clinical Summary ---
Author Organization [facility] Address [address] [place] [address] Phone Care Team Providers Care Junior Programmer Name Role Phone Unavailable Primary Care Provider Unavailabl e Allergies No known active allergies Medications vits15/iron/fol ic/dss ( VIT 93-FMSS-UNFTW-D SS ORAL) Take by mouth. Active acetaminophen (TYLENOL) 325 mg tablet Take 2 Tablets (650 mg) by mouth every 6 hours. 90 Tablet 01/04/2024 10:58 AM MAORI LIAISON ADVISER 01/04/2024 Active ibuprofen (MOTRIN) 600 mg tablet Take 1 Tablet (600 mg) by mouth every 6 hours. 90 Tablet 01/04/2024 10:58 AM MAORI LIAISON ADVISER 01/04/2024 Active oxyCODONE (ROXICODONE) 5 mg tabletIndicatio ns:History of delivery affecting Take 1 Tablet (5 mg) by mouth every 4 hours as needed. Max Daily Amount: 6 tablets 20 Tablet 01/04/2024 10:58 AM MAORI LIAISON ADVISER 01/04/2024 Active Active Problems Problem Noted Date Diagnosed Date MFMtx([facility])/OBH: classical C/S (girl 23wk demise,NICU), PPROM, breech, labor 12/31/2023 Supervision of high risk in [facility] 12/31/2023 Short cervix affecting 12/31/2023 History of delivery affecting 12/31/2023 Encounters Date Type Department Care Team Description 04/26/2024 External Device Data STL ABSTRACTION Provider, Abstract 04/25/2024 Telephone [facility] Labor & [address] [place] [address] Margaret Church RN [employer]- bereavement, due date week 04/23/2024 External Device Data STL ABSTRACTION Provider, Abstract 04/22/2024 External Device Data STL ABSTRACTION Provider, Abstract 04/20/2024 External Device Data STL ABSTRACTION Provider, Abstract 04/12/2024 External Device Data STL ABSTRACTION Provider, Abstract 04/12/2024 External Device Data STL ABSTRACTION Provider, Abstract 04/06/2024 External Device Data STL ABSTRACTION Provider, Abstract 04/06/2024 External Device Data STL ABSTRACTION Provider, Abstract 03/22/2024 External Device Data STL ABSTRACTION Provider, Abstract 03/16/2024 External Device Data STL ABSTRACTION Provider, Abstract 03/10/2024 External Device Data STL ABSTRACTION Provider, Abstract 03/08/2024 External Device Data STL ABSTRACTION Provider, Abstract 02/02/2024 External Device Data STL ABSTRACTION Provider, Abstract from Last 3 Months Social History Tobacco Use Types Packs/Day Years Used Date Smoking Tobacco: Never Smokeless Tobacco: Never Tobacco Cessation:Counseling Given: Not Answered Alcohol Use Standard Drinks/Week Comments Not Currently [...] Sign Reading Time Taken Comments Blood Pressure 119/89 01/04/2024 10:35 AM MAORI LIAISON ADVISER Pulse 83 01/04/2024 10:35 AM MAORI LIAISON ADVISER Temperature 36.4 C (97.6 F) 01/04/2024 10:35 AM MAORI LIAISON ADVISER Respiratory Rate 18 01/04/2024 10:35 AM MAORI LIAISON ADVISER Oxygen Saturation 99% 01/04/2024 10:35 AM MAORI LIAISON ADVISER Inhaled Oxygen Concentration - - Weight 93.4 kg (206 lb) 12/30/2023 5:18 PM MAORI LIAISON ADVISER Height 162.6 cm (5' 4 ) 12/30/2023 5:18 PM MAORI LIAISON ADVISER Body Mass Index 35.36 12/30/2023 5:18 PM MAORI LIAISON ADVISER Plan of Treatment Health Maintenance Due Date Last Done Comments DTAP/TDAP/TD VACCINES (1 - Tdap) 2009 HEPATITIS B VACCINES (1 of 3 - 19+ 3-dose series) 2009 CERVICAL CANCER SCREENING 2020 INFLUENZA VACCINE (#1) 2023 Preventative Visit- Commercial 02/17/2024 06/08/2023, 03/03/2022 HPV VACCINES Aged Out No longer eligi ble based on patient's age to complete this topic Medical Devices Implanted Type Area Market President Device Identifier Shelf Expiration Date Model / Serial / Lot Barrier Interceed Adh 3x4in [id number] - [id number] Implanted:Qty : 1 on 01/02/2024 by Effie Prasad DO at [facility] [employer] [id number] / / Insurance RX [employer] Commercial Advance Directives For more information, please contact: [phone] * Full Code (Latest Code Status on File) Date Activated Date Inactivated Comments 01/02/2024 6:03 AM 01/04/2024 1:16 PM
--- OUTSIDE RECORDS SUMMARY | 2024-04-28 13:18 | XMS_ITS | Clinical Summary ---
Author Organization [facility] Address [address] [place] [address] Care Team Providers Care Forklift Mechanic Name Role Phone Unavailable Primary Care Provider Unavailabl e Source Comments [facility],non-owned Affiliates and Associated Physician Practices is amultiple site organization consisting of ambulatory clinics and hospital sitesin [place], [place], [place] and [place]. This disclosure is being madepursuant to the Care Everywhere program and may not contain all information available regarding this patient. Last updated 17.[facility] Social History Tobacco Use Types Packs/Day Years Used Date Smoking Tobacco: Never Assessed Sex and Gender Information Value Date Recorded Sex Assigned at Not on file Gender Identity Not on file Sexual Orientation Not on file Plan of Treatment Health Maintenance Due Date Last Done Comments PAP SMEAR 1990 HIV SCREENING 2005 HEPATITIS C SCREENING 12/22/2008 DTAP/TDAP/TD VACCINES (1 - Tdap) 2009 HEPATITIS B VACCINE (1 of 3 - 19+ 3-dose series) 2009 COVID-19 VACCINE ( - 2023-2 5 season) 2023 INFLUENZA VACCINE (#1) 2023 DEPRESSION SCREENING 02/17/2024 ZOSTER VACCINE (1 of 2) 2040 HIB VACCINE Aged Out No longer eligi ble based on patient's age to complete this topic HPV VACCINE Aged Out No longer eligi ble based on patient's age to complete this topic MENINGOCOCCAL (Group B) VACC INE SHARED DECISION-MAKING Aged Out No longer eligibl e based on patient's age to complete this topic MENINGOCOCCAL GROUPS A/C/Y/W VACCINE Aged Out No longer eligible b ased on patient's age to complete this topic PNEUMOCOCCAL VACCINE Aged Out No long er eligible based on patient's age to complete this topic
--- OUTSIDE RECORDS SUMMARY | 2024-04-28 13:18 | XMS_ITS | Encounter Summary ---
Author Organization [facility] Address [address] [address] Care Team Providers Care Smt Machine Operator Name Role Phone Unavailable Primary Care Provider Unavailabl e Encounter Details Date Type Department Care Team (Late st Contact Info) Description 03/11/2023 Lab Requisition [facility] - DermPath Lab [address] [place] [id number] aMson Long MD [facility] DERMATOLOGY [address] [place] [phone] Neoplasm of uncertain behavior of skin Social History Tobacco Use Types Packs/Day Years Used Date Smoking Tobacco: Never Assessed Sex and Gender Information Value Date Recorded Sex Assigned at Not on file Gender Identity Not on file Sexual Orientation Not on file documented as of this encounter Plan of Treatment Not on file documented as of this encounter Procedures Procedure Name Priority Date/Time Associated Diagnosis Comments DERMATOPATHOLOGY Routine 03/11/2023 3:33 AM OVEN DAUBER Neoplasm of uncertain behavior of skin documented in this encounter Results * DERMATOPATHOLOGY (03/11/2023 3:33 AM OVEN DAUBER) Case Report Dermatopathology Report Case: [id number] Authorizing Provider: Mason Long MD Collected: 03/11/2023 03:33 AM Ordering Location: [facility] DermPath Lab Received: 03/13/2023 07:43 AM Pathologist: Karla Wolf MD Specimens: A) - Skin, lft lateral plantar 3rd toe B) - Skin, left lateral plantar mid foot 4:16 PM OVEN DAUBER DERMATOPATHOLOGY LABORATORY Final Diagnosis Specimen A. SKIN, lft lateral plantar 3rd toe: DERMAL SCAR (L90.5) Specimen B. SKIN, left lateral plantar mid foot: COMPOUND MELANOCYTIC NEVUS, OF ACRAL SKIN (D22.72) 4:16 PM [facility] DERMATOPATHOLOGY LABORATORY Clinical History A-B: Neoplasm of Uncertain Behavior 4:16 PM [facility] DERMATOPATHOLOGY LABORATORY Gross Description Specimen A: Received is one formalin filled container labeled with the patient's name and designated lft lateral plantar 3rd toe. The specimen consists of a shave biopsy measuring [id number] mm. Jar 0. Specimen B: Received is one formalin filled container labeled with the patient's name and designated left lateral plantar mid foot. The specimen consists of a shave biopsy measuring [id number] mm. Jar 0. 4:16 PM [facility] DERMATOPATHOLOGY LABORATORY Microscopic Description Specimen A. SKIN, lft lateral plantar 3rd toe: There are fibroblasts and collagen bundles oriented parallel to the skin surface with elongated blood vessels, some of which are oriented perpendicular to the skin surface. Specimen B. SKIN, left lateral plantar mid foot: Sections show acral type skin with collections of melanocytes at the dermal-epidermal junction that are forming fairly well defined th ques. Melanocytes are also present in the upper dermis. 4:16 PM [facility] DERMATOPATHOLOGY LABORATORY Disclaimer An external and internal positive and negative controls are appropriate for the histochemical, immunohistochemical and immunofluorescence stain(s) in this case (if any), except where stated explicitly. The performance characteristics of the stain(s) cited in this report were developed and its performance characteristic determined by the Dermatopathology Laboratory at [facility], directed by Dr. Lorenzo Montanez. These tests need not be, and therefore are not, approved by the [place] Food and Drug Administration. The tests are used for clinical purposes. Billing Codes Specimen Charges Stain Charges 85129 [id number] 1 1 4 4:16 PM [facility] DERMATOPATHOLOGY LABORATORY Embedded Images 4:16 PM [facility] DERMATOPATHOLOGY LABORATORY Pathology/Cytology TISSUE SPECIMEN FROM SKIN / Unknown 03/11/2023 3:33 AM OVEN DAUBER 03/13/2023 7:43 AM OVEN DAUBER Miscellaneous samples (specimen) TISSUE SPECIMEN FROM SKIN / Unknown 03/11/2023 3:33 AM OVEN DAUBER 03/13/2023 7:43 AM OVEN DAUBER Mason Long MD LAB - PATHOLOGY/CYTO LOGY ORDERABLES DERMATOPATHOLOGY LABORATORY [facility] - Department of Dermatology [facility] Medicine [address] [place] [address], [address] [phone] documented in this encounter Visit Diagnoses Diagnosis Neoplasm of uncertain behavior of skin documented in this encounter
--- OUTSIDE RECORDS SUMMARY | 2024-04-28 13:18 | XMS_ITS | Patient Health Summary ---
Author Organization [facility] Address [address] [place] [address] Care Team Providers Care Tire Center Supervisor Name Role Phone Unavailable Primary Care Provider Unavailabl e Note from [facility],non-owned Affiliates and Associated Physician Practices is amultiple site organization consisting of ambulatory clinics and hospital sitesin [place], [place], [place] and [place]. This disclosure is being madepursuant to the Care Everywhere program and may not contain all information available regarding this patient. Last updated 17.[facility] Social History Tobacco Use Types Packs/Day Years Used Date Smoking Tobacco: Never Assessed Sex and Gender Information Value Date Recorded Sex Assigned at Not on file Gender Identity Not on file Sexual Orientation Not on file Procedures * DERMATOPATHOLOGY(Performed 03/11/2023) Performed for Neoplasm of uncertain behavior of skin Results * DERMATOPATHOLOGY (03/11/2023 3:33 AM BARTENDER MANAGER) Case Report Dermatopathology Report Case: [id number] Authorizing Provider: Mason Long MD Collected: 03/11/2023 03:33 AM Ordering Location: [facility] DermPath Lab Received: 03/13/2023 07:43 AM Pathologist: Karla Wolf MD Specimens: A) - Skin, lft lateral plantar 3rd toe B) - Skin, left lateral plantar mid foot 4 4:16 PM BARTENDER MANAGER DERMATOPATHOLOGY LABORATORY Final Diagnosis Specimen A. SKIN, lft lateral plantar 3rd toe: DERMAL SCAR (L90.5) Specimen B. SKIN, left lateral plantar mid foot: COMPOUND MELANOCYTIC NEVUS, OF ACRAL SKIN (D22.72) 4 4:16 PM BARTENDER MANAGER DERMATOPATHOLOGY LABORATORY Clinical History A-B: Neoplasm of Uncertain Behavior 4 4:16 PM BARTENDER MANAGER DERMATOPATHOLOGY LABORATORY Gross Description Specimen A: Received is one formalin filled container labeled with the patient's name and designated lft lateral plantar 3rd toe. The specimen consists of a shave biopsy measuring [id number] mm. Jar 0. Specimen B: Received is one formalin filled container labeled with the patient's name and designated left lateral plantar mid foot. The specimen consists of a shave biopsy measuring [id number] mm. Jar 0. 4 4:16 PM [facility] DERMATOPATHOLOGY LABORATORY Microscopic Description Specimen [...] are also present in the upper dermis. 4 4:16 PM [facility] DERMATOPATHOLOGY LABORATORY Disclaimer An external and internal positive and negative controls are appropriate for the histochemical, immunohistochemical and immunofluorescence stain(s) in this case (if any), except where stated explicitly. The performance characteristics of the stain(s) cited in this report were developed and its performance characteristic determined by the Dermatopathology Laboratory at [facility], directed by Dr. Lorenzo Montanez. These tests need not be, and therefore are not, approved by the [place] Food and Drug Administration. The tests are used for clinical purposes. Billing Codes Specimen Charges Stain Charges 17087 [id number] 1 1 4 4:16 PM [facility] DERMATOPATHOLOGY LABORATORY Embedded Images 4 4:16 PM [facility] DERMATOPATHOLOGY LABORATORY Pathology/Cytology TISSUE SPECIMEN FROM SKIN / Unknown 03/11/2023 3:33 AM BARTENDER MANAGER 03/13/2023 7:43 AM BARTENDER MANAGER Miscellaneous samples (specimen) TISSUE SPECIMEN FROM SKIN / Unknown 03/11/2023 3:33 AM BARTENDER MANAGER 03/13/2023 7:43 AM BARTENDER MANAGER Mason Long MD LAB - PATHOLOGY/CYTO LOGY ORDERABLES DERMATOPATHOLOGY LABORATORY [facility] - Department of Dermatology [address], [address] [phone]
--- OUTSIDE RECORDS SUMMARY | 2024-04-28 13:18 | XMS_ITS | Clinical Summary ---
Author Organization [facility] Address [address] [place] [address] Phone Care Team Providers Care Field Crop Harvest Worker Name Role Phone Stoney Asif MD Primary Care Provider Allergies No known active allergies Medications other 1 Tab by Other route daily. 213 complex weight loss tab Active omeprazole (PRILOSEC) 20 MG CAPSULE DELAYED RELEASE Take 1 Cap by mouth nightly. 30 Cap 0 6 Active Additional Information Patient not taking.Reported on 01/08/2020 MAGNESIUM CITRATE PO Take by mouth. Acti ve Cyanocobalamin (B-12 PO) Take by mouth. Activ e Multiple Vitamin (MULTIVITAMIN PO) Take by mouth. Activ e Vienva 0.1-20 MG-MCG Tablet TK 1 T PO QD 0 Active albuterol (ProAir HFA) 108 (90 Base) MCG/ACT Aerosol SolutionIndicati ons:Cough take 2 Puffs by inhalation every 4 hours as needed for Wheezing or Cough. 1 Inhaler 0 Active Additional Information Patient not taking.Reported on 01/31/2020 ondansetron (ZOFRAN-ODT) 4 MG TABLET DISPERSIBLE Take 1 Tablet by mouth every 8 hours as needed for Nausea - 1st line. 15 Tablet 1 Active Additional Information Patient not taking.Reported on 09/24/2022 famotidine (PEPCID) 20 MG Tablet Take 2 Tablets by mouth every evening. 90 Tablet 1 1 Active Additional Information Patient not taking.Reported on 09/24/2022 Loratadine (CLARITIN PO) Take by mouth. A ctive Active Problems No known active problems Social History Tobacco Use Types Packs/Day Years Used Date Smoking Tobacco: Never Smokeless Tobacco: Never Tobacco Cessation:Counseling Given: Not Answered Alcohol Use Standard Drinks/Week Comments Yes 0 (1 standard drink = 0.6 oz pur e alcohol) socially Comments No Sex and Gender Information Value Date Recorded Sex Assigned at Not on file Legal Sex Female 10:20 PM CDT Gender Identity Not on file Sexual Orientation Not on file Last Filed Vital Signs Vital Sign Reading Time Taken Comments Blood Pressure 110/60 09/24/2022 5:37 PM CDT Pulse 74 09/24/2022 5:37 PM CDT Temperature 36.8 C (98.2 F) 09/24/2022 5:37 PM CDT Respiratory Rate 16 09/24/2022 5:37 PM CDT Oxygen Saturation 100% 09/24/2022 5:37 PM CDT Inhaled Oxygen Concentration - - Weight 69.4 kg (153 lb) 04/25/2020 10:51 AM BASS STRING WINDER Height 165.1 cm (5' 5 ) 04/25/2020 10:51 AM BASS STRING WINDER Body Mass Index 25.46 04/25/2020 10:51 AM BASS STRING WINDER Plan of Treatment Health Maintenance Due Date Last Done Comments Hepatitis C Virus (HCV) Screening 1990 TdaP Immunization 1990 Hepatitis B Immunization (1 of 3 - 19+ 3-dose series) 2009 Pap Smear 12/28/2011 Cervical Cancer Screening (CCS) 2020 HPV/Cotest 2020 Influenza Immunization (#1) 2023 SARS-COV-2 Immunization ( season) 2023 Respiratory Syncytial Virus (RSV) Immunization (Adult) (1 - 1-dose 75+ series) 2065 Meningococcal Immunization (ACWY) Aged Out No longer eligible based on patient's age to complete this topic Pneumococcal Immunization Combined Aged Out No longer eligible based on patient's age to complete this topic Rotavirus Immunization Aged Out No lo nger eligible based on patient's age to complete this topic Insurance [facility] Care Teams Field Crop Harvest Worker Relationship Specialty Start Date End Date Stoney Asif MD [address] [place], [place] [phone] PCP - General Family Medicine 12/19/15
--- OUTSIDE RECORDS SUMMARY | 2024-04-28 13:18 | XMS_ITS | Referral Summary ---
Author Organization [facility] Address [address] [place] [address] Care Team Providers Care Evaluation Manager Name Role Phone Unavailable Primary Care Provider Unavailabl e Source Comments [facility],non-owned Affiliates and Associated Physician Practices is amultiple site organization consisting of ambulatory clinics and hospital sitesin [place], [place], [place] and [place]. This disclosure is being madepursuant to the Care Everywhere program and may not contain all information available regarding this patient. Last updated 17.[facility] [employer] Social History Tobacco Use Types Packs/Day Years Used Date Smoking Tobacco: Never Assessed Sex and Gender Information Value Date Recorded Sex Assigned at Not on file Gender Identity Not on file Sexual Orientation Not on file Plan of Treatment Not on file
== END 2024-04-28 11:22 | disposition home or self-care (01) ==
PROVIDERS: PCP Internal Medicine; Visit Provider Obstetrics & Gynecology
DX: N63.10 Unspecified lump in the right breast, unspecified quadrant (principal)
CPT/HCPCS: 76642; 77062; 77066; G0279

== ENCOUNTER 2024-08-29 02:23 | Day surgery (SDC) | payer BC, SELFPAY ==
--- NOTE | 2024-08-17 15:02 | SUR.PREOP ---
Report to the Outpatient Waiting Room, entrance under the green pavilion located off [facility], at time _0700_ on date _08/29/2024_. Planned Procedure Time: _0900_.? Time changes happen often and if your time is changed the preop area will call you the afternoon before. - You and your visitor will be asked to self-screen and do not enter if you have any COVID symptoms. Please call surgeon if you need to reschedule. - A mask is optional within the hospital at this time. Patients may have clear liquids (water, carbonated beverages, clear teas, apple juice) until 3 hours (0600)prior to surgery with a maximum of 20 ounces. - No food from midnight until time of surgery and no smoking, or chewing tobacco (or any form of nicotine). No chewing gum, candy or mints. - Infants may have breast milk until 4 hours before surgery, infant formula 6 hours prior to surgery. - Children will be allowed to drink immediately following surgery.? If applicable, please bring a bottle or sippy cup to assist with drinking. Juice, water, soda, and popsicles are readily available.? For infants on formula, please bring formula the day of surgery.? Pacifiers are allowed. Take only the following medications with a SIP of water on the morning of surgery: _BIRTH CONTROL_ DO NOT STOP ANY OF YOUR OTHER PRESCRIPTION MEDICATIONS PRIOR TO SURGERY EXCEPT THE FOLLOWING Hold all vitamins and supplements for 3 days per anesthesiologist. Medications to discontinue per physician _NA_ Date to take last dose_NA_ Please no make-up, nail serbian, hairspray, perfume, deodorant, or body powder the day of surgery.? No jewelry (including any body piercings) or valuables the day of surgery, leave them at home.? Please take a shower or bath the night before, or the morning of, surgery with an antibacterial soap.? Wear comfortable, loose fitting clothing.? Children are encouraged to wear pajamas. - Jewelry must be removed prior to entering the operating room.? Rings and piercings that are not removed may be cut off. - The hospital will not accept responsibility for valuables.? - Please leave all valuables, including medications, at home the day of surgery. If you are going home after surgery, a licensed garbage collector driver must drive you home.? - NO public transportation without another adult if you receive anesthesia. - We recommend that an adult stay with you for 24 hours following discharge. - We also recommend that you do not drive, make important decision, drink alcoholic beverages, or take any drugs that were not prescribed by your health care provider for at least 24 hours after your discharge time. For Pediatric surgeries, we recommend two adults accompany the child home. Follow any additional instructions given to you from your surgeon. Telephone instructions given to _CARLITA_and asked if any additional questions and then verbalized understanding. Patient advised to call surgeon office or pre surgery nurse liaison [phone] if any additional questions.
[2024-08-17 15:08] VITALS: BMI 31.1
[2024-08-29] VITALS (10 sets, daily range): BP systolic 114–136; BP diastolic 61–80; PULSE 59–74; RESP 12–16; TEMP 36.3; O2SAT 99–100
--- OUTSIDE RECORDS SUMMARY | 2024-08-29 02:27 | XMS_ITS | Clinical Summary ---
Author Organization [facility] Address [address] [place] [address] Phone Care Team Providers Care Sterile Tech Name Role Phone Unavailable Primary Care Provider Unavailabl e Allergies No known active allergies Medications vits15/iron/fol ic/dss ( VIT 62-WNAZ-QPVFE-D SS ORAL) Take by mouth. Active acetaminophen (TYLENOL) 325 mg tablet Take 2 Tablets (650 mg) by mouth every 6 hours. 90 Tablet 01/04/2024 10:58 AM BROOD STATION MANAGER 01/04/2024 Active ibuprofen (MOTRIN) 600 mg tablet Take 1 Tablet (600 mg) by mouth every 6 hours. 90 Tablet 01/04/2024 10:58 AM BROOD STATION MANAGER 01/04/2024 Active oxyCODONE (ROXICODONE) 5 mg tabletIndicatio ns:History of delivery affecting Take 1 Tablet (5 mg) by mouth every 4 hours as needed. Max Daily Amount: 6 tablets 20 Tablet 01/04/2024 10:58 AM BROOD STATION MANAGER 01/04/2024 Active Active Problems Problem Noted Date Diagnosed Date [facility]tx([facility])/OBH: classical C/S (girl 23wk demise,NICU), PPROM, breech, labor 12/31/2023 Supervision of high risk in [facility] 12/31/2023 Short cervix affecting 12/31/2023 History of delivery affecting 12/31/2023 Encounters Date Type Department Care Team Description 08/16/2024 External Device Data STL ABSTRACTION Provider, Abstract 08/03/2024 External Device Data STL ABSTRACTION Provider, Abstract 07/06/2024 External Device Data STL ABSTRACTION Provider, Abstract 07/06/2024 External Device Data STL ABSTRACTION Provider, Abstract 07/05/2024 External Device Data STL ABSTRACTION Provider, Abstract 06/21/2024 External Device Data STL ABSTRACTION Provider, Abstract [...] Comments Blood Pressure 119/89 01/04/2024 10:35 AM BROOD STATION MANAGER Pulse 83 01/04/2024 10:35 AM BROOD STATION MANAGER Temperature 36.4 C (97.6 F) 01/04/2024 10:35 AM BROOD STATION MANAGER Respiratory Rate 18 01/04/2024 10:35 AM BROOD STATION MANAGER Oxygen Saturation 99% 01/04/2024 10:35 AM BROOD STATION MANAGER Inhaled Oxygen Concentration - - Weight 93.4 kg (206 lb) 12/30/2023 5:18 PM BROOD STATION MANAGER Height 162.6 cm (5' 4) 12/30/2023 5:18 PM BROOD STATION MANAGER Body Mass Index 35.36 12/30/2023 5:18 PM BROOD STATION MANAGER Plan of Treatment Health Maintenance Due Date Last Done Comments DTAP/TDAP/TD VACCINES (1 - Tdap) 2009 HEPATITIS B VACCINES (1 of 3 - 19+ 3-dose series) 2009 HPV/Cotest (21-29) 12/28/2011 CERVICAL CANCER SCREENING 2020 HPV/Cotest (30-65) 2020 PAP SMEAR 2020 INFLUENZA VACCINE (#1) 2024 HPV VACCINES Aged Out No longer eligi ble based on patient's age to complete this topic Medical Devices Implanted Type Area Panel Cutter Device Identifier Shelf Expiration Date Model / Serial / Lot Barrier Interceed Adh 3x4in 4350 - [id number] Implanted:Qty : 1 on 01/02/2024 by Effie Prasad DO at [facility] [employer] Barrier [employer] [id number] / / Insurance BCBS BLUE ACCESS CHOICE RX [employer] Commercial Advance Directives For more information, please contact: [phone] * Full Code (Latest Code Status on File) Date Activated Date Inactivated Comments 01/02/2024 6:03 AM 01/04/2024 1:16 PM
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
--- OUTSIDE RECORDS SUMMARY | 2024-08-29 02:28 | XMS_ITS | Clinical Summary ---
Author Organization [facility] Address [address] [place] [address] Care Team Providers Care Logistics Manager Name Role Phone Unavailable Primary Care Provider Unavailabl e Source Comments [facility],non-owned Affiliates and Associated Physician Practices is amultiple site organization consisting of ambulatory clinics and hospital sitesin [place], [place], [place] and [place]. This disclosure is being madepursuant to the Care Everywhere program and may not contain all information available regarding this patient. 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
--- OUTSIDE RECORDS SUMMARY | 2024-08-29 02:28 | XMS_ITS | Data Portability ---
Author Organization [facility] Address [address] [place] [address] [place] [address] Care Team Providers Care Transit Mix Operator Name Role Phone GREGORY DINESH Primary Care Provider Assessment Encounter Date Assessment Date Assessment LastModified by Organization Details LastModified Time 01/19/2024 01/19/2024 Patient here due to a UTI, per MM leaving a sample. Dipped urine, will send for culture. Treat results as needed. [email or web address] Not available 01/19/2024 11:21:42 Plan of Treatment Reminders Order Date Submit Date Provider Last Modified By Organization Details Last Modified Time Details Appointments SURG Salpingec jose 2024 09:00A Savannah SANCHEZ MD Not available Not available Not available SURG POST OP 2024 09:00A Savannah SANCHEZ MD Not available Not available Not available Lab urinalysi s, dipstick 2023 024 [email or web address] [facility] [address], [place], [address], 01/19/2024 11:22:43 culture, urine 2023 024 [facility] (Lab), [address], [place], [address], 01/22/2024 08:09:37 Referral None recorded. Procedures None recorded. Surgeries salpingec jose, laparosco pic (SURG) 2024 025 [facility], [address], [place], [address], 05/19/2024 09:58:20 Imaging MAMMO, diagnosti c, digital, bilateral 2024 025 [facility], [address], [facility] [address], [place], [address], 04/28/2024 15:32:18 electroca rdiogram [address] (Cardiology [facility] Emg), [address], [place], [address], 07/22/2024 11:29:37 Medication Orders Blisovi Fe 1/20 (28) 1 mg-20 mcg (21)/75 mg (7) tablet 2023 024 [id number], [address], [place], [place], [id number], 02/08/2024 14:46:08 Patient TargetsNo targets recorded. Patient InstructionsNo [...] Final resul t Abnor mal: Yes Resul lucíag Lab: [facility] [address] [facility] [address] Tel: CULTU RE ----- ----- ----- --- 25,00 0-50, 000 CFU/m l Esche arsalan a coli (Abno rmal) SUSCE PTIBI LITY ----- ----- ----- --- Esche [...] <=0.5 ug/mL Susce ptibl e Not Available [facility] (Lab) [address], [place], [address], 01/22/2024 08:09:37 01/19/20 24 01/19/2024 urina lysis , dipst ick Leukocytes ++ Not Available [facility] [address], [place], [address], 01/19/2024 11:21:47 01/19/20 24 01/19/2024 urina lysis , dipst ick Nitrite Negati ve Not Available [facility] [address], [place], [address], 01/19/2024 11:21:47 01/19/20 24 01/19/2024 urina lysis , dipst ick Urobilinogen Normal Not Available [facility] [address], [place], [address], 01/19/2024 11:21:47 01/19/20 24 01/19/2024 urina lysis , dipst ick Protein Trace Not Available [facility] [address], [place], [address], 01/19/2024 11:21:47 01/19/20 24 01/19/2024 urina lysis , dipst ick pH 5 Not Available [facility] [address], [place], [address], 01/19/2024 11:21:47 01/19/20 24 01/19/2024 urina lysis , dipst ick Blood + Not Available [facility] [address], [place], [address], 01/19/2024 11:21:47 01/19/20 24 01/19/2024 urina lysis , dipst ick Specific [place] 1.020 Not Available [facility] [address], [place], [address], 01/19/2024 11:21:47 01/19/20 24 01/19/2024 urina lysis , dipst ick Ketone Negati ve Not Available [facility] [address], [place], [address], 01/19/2024 11:21:47 01/19/20 24 01/19/2024 urina lysis , dipst ick Bilirubin Negati ve Not Available [facility] [address], [place], [address], 01/19/2024 11:21:47 01/19/20 24 01/19/2024 urina lysis , dipst ick Glucose Normal Not Available [facility] [address], [place], [address], 01/19/2024 11:21:47 01/19/20 24 01/19/2024 urina lysis , dipst ick Color Dark yellow Not Available [facility] [address], [place], [address], 01/19/2024 11:21:47 02/08/20 24 02/08/2024 WOMEN 'S HEALT H SWAB PLUS, VIOLETTA bacterial vaginosis (bv), tma Negati ve negati ve Not Available [facility] (Lab) [address] [facility], [place], [address], 02/09/2024 17:06:45 02/08/20 24 02/08/2024 WOMEN 'S HEALT H SWAB PLUS, VIOLETTA jennyfer species, tma Negati ve negati ve Not Available [facility] (Lab) [address] [facility], [place], [address], 02/09/2024 17:06:45 02/08/20 24 02/08/2024 WOMEN 'S HEALT H SWAB PLUS, VIOLTETA jennyfer glabrata, tma Negati ve negati ve Not Available [facility] (Lab) [address] [facility], [place], [address], 02/09/2024 17:06:45 02/08/20 24 02/08/2024 WOMEN 'S HEALT H SWAB PLUS, VIOLETTA trichomonas vaginalis, tma Negati ve negati ve Not Available [facility] (Lab) [address] [facility], [place], [address], 02/09/2024 17:06:45 02/08/20 24 02/08/2024 WOMEN 'S HEALT H SWAB PLUS, VIOLETTA chlamydia trachomatis, PCR Negati ve negati ve Not Available [facility] (Lab) [address] [place], [address], 02/09/2024 17:06:45 02/08/20 24 02/08/2024 WOMEN 'S [...] ded in this panel . Not Available [facility] (Lab) [address] , [place], [address], 02/09/2024 17:06:45 02/08/2002/08/2024 CULTU RE: URINE result report SEE RESULT S BELOW Test: Cultu re: Urine Speci men Sourc e: Urine - Clean Catch Speci men Type: Urine Speci men Date: 02/07 1559 Resul t Date: 02/09 1411 Resul t Statu s: Final resul t Abnor mal: No Resul ting Lab: [facility] [address] [facility] [address] Tel: CULTU RE ----- ----- ----- --- Cultu re resul t (>=3 organ isms prese nt) indic ates possi ble conta minat ion. Repea t cultu re if sympt oms indic ate. Not Available [facility] (Lab) [address] , [place], [address], 02/10/2024 15:13:48 12/16/19 24 12/16/2023 US, obste tric, mater nal evalu ation + anato my No observ ation record ed. [address] [place] [id number] [facility], [place], [address], 12/17/2023 09:24:58 12/18/1912/16/2023 US, obste tric, follo w-up No observ ation record ed. [address], [place], [address], 12/22/2023 10:57:22 12/30/1912/30/2023 US, obste tric, follo w-up No observ ation record ed. [address], [place], [address], 12/31/2023 10:28:42 12/30/19 24 12/30/2023 US, obste tric, follo w-up No observ ation record ed. [place] [id number] [facility], [place], [address], 12/31/2023 10:28:15 02/10/20 24 02/08/2024 imagi ng/di agnos tic resul t No observ ation record ed. LAST Not Available 2023 11:53:04 04/29/1904/28/2024 MAMMO , diagn ostic , digit al, bilat eral No observ ation record ed. [facility] [address], [place], [address], 05/03/2024 17:18:33 Result Notes None recorded. Problems Name Problem SNOMED Code Status Onset Date Resolution Date Notes Provider Name and Address Organization Details Recorded Time Pregnanc y 07666904 Completed 202110/04/2021 DEJA SANCHEZ MD [address], [place], [address], [facility] 4 11:27:54 History of loop electros urgical excision procedur e 8674195417 9102 Active CL at 16 and 20w Alba douglass null, [facility] 2 15:26:22 History of SARS-CoV -2 5802153693 65014468 Completed ASA, growth Alba douglass null, [facility] 2 15:26:22 History of loop electros urgical excision procedur e 2364880728 9102 Completed CL at 16 and 20w Alba douglass null, [facility] 2 15:26:22 Past pregnanc y history of ectopic pregnanc y 531071332 Active 2023 Trinitylaurenalexia NjJeannie null, [facility] 4 11:31:36 Pregnanc y 78258920 Completed 202301/12/2024 DEJA SANCHEZ MD [address], [place], [address], [facility] 4 11:27:54 Past pregnanc y history of section 808293801 Completed Plan for repeat, desires tubal DEJA SANCHEZ MD [address], [place], [address], [facility] 4 23:49:34 Past pregnanc y history of section 273372678 Active Plan for repeat, desires tubal DEJA SANCHEZ MD [address], [place], [address], [facility] 4 23:49:34 Disorder of uterus 00448271 Completed 1-2mm of uterine wall underlyi ng bladder, thinning at site of previous hysterot ej [facility] referral order faxed 12/09/23 DEJA SANCHEZ MD [address], [place], [address], [facility] 4 23:49:34 Disorder of uterus 87010445 Active 1-2mm of uterine wall underlyi ng bladder, thinning at site of previous hysterot ej [facility] referral order faxed 12/09/23 DEJA SANCHEZ MD [address], [place], [address], [facility] 4 23:49:34 Problem Notes None recorded. Procedures Surgical History Date Name Laterality Status Provider Name and Address Organization Details Recorded Time 4 section completed [facility] 01/12/2024 10:59:54 4 Date of Last Pap Smear completed [facility] 04/14/2024 09:45:37 8 LEEP completed [facility] 04/12/2021 09:29:25 8 colposcopy completed [facility] 04/12/2021 11:06:24 Imaging Results None recorded. Procedure Notes None recorded. Medical Equipment None [...] Available Not Available cephalexin 500 mg capsule Take 1 capsule every 6 hours by oral route for 5 days. [...] 1 mg-20 mcg (21)/75 mg (7) tablet TAKE 1 TABLET BY MOUTH EVERY DAY active Not Available Not Available No t Available Vitals Date Recorded Body height Body mass index (BMI) Body weight Systolic And Diastolic Provider Name and Address Organization Details Last Updated DateTime 04/14/2024 165.1 cm 31.6 kg/m2 95860.55 g 138/87 mm[Hg] [facility] 04/14/2024 09:44:53 Date Recorded Body height Body mass index (BMI) Body weight Systolic And Diastolic Provider Name and Address Organization Details Last Updated DateTime 05/17/2024 165.1 cm 31.5 kg/m2 25627.96 g 128/81 mm[Hg] MARY Linette [facility] 05/17/2024 10:31:17 Date Recorded Body height Body mass index (BMI) Body weight Systolic And Diastolic Provider Name and Address Organization Details Last Updated DateTime 01/12/2024 165.1 cm 33.8 kg/m2 33836.25 g 128/82 mm[Hg] [facility] 01/12/2024 10:58:57 Date Recorded Body height Body mass index (BMI) Body weight Systolic And Diastolic Provider Name and Address Organization Details Last Updated DateTime 02/08/2024 165.1 cm 34.1 kg/m2 80042.44 g 119/78 mm[Hg] [facility] 02/08/2024 14:19:30 Social History Question Answer Notes LastModified by Organizat ion Details LastModified Time Tobacco Smoking Status Never [facility] 06/14/2021 11:27:32 Do You Have An Advance Directive? No [email or web address] Information n ot available 06/14/2021 Are You Blind Or Do You Have Difficulty Seeing? No [email or web address] Information n ot available 06/14/2021 What Is Your Level Of Caffeine Consumption? Occasional Information not available 06/08/2023 How Much Tobacco Do You Chew? None [email or web address] Information not available 06/14/2021 In The 14 Days Before Symptom Onset, Have You Had Close Contact With A Laboratory-confirm ed COVID-19 While That Case Was Ill? No [email or web address] Information n ot available 06/14/2021 In The 14 Days Before Symptom Onset, Have You Had Close Contact With A Person Who Is Under Investigation For COVID-19 While That Person Was Ill? No Information not available 06/14/2021 Have You Been To An Area Known To Be High Risk For COVID-19? No [email or web address] Information not available 06/14/2021 Are You Deaf Or Do You Have Serious Difficulty Hearing? No [email or web address] Information not available 06/14/2021 What Type Of Diet Are You Following? REGULAR [email or web address] Information n ot available 06/14/2021 What Is The Highest Grade Or Level Of School You Have Completed Or The Highest Degree You Have Received? [id number] [email or web address] Information not available 06/14/2021 Are There Any Guns Present In Your Home? Yes [email or web address] Information not available 06/14/2021 Do You Use Protection During Sex? No [email or web address] Information not available 06/14/2021 Do You Use Your Seat Belt Or Car Seat Routinely? Yes [email or web address] Information not available 06/14/2021 Do You Have Smoke And Carbon Monoxide Detectors In Your Home? Yes [email or web address] Information not available 06/14/2021 How Much Tobacco Do You Smoke? No [email or web address] Information not available 06/14/2021 Do You Use Sunscreen Routinely? Yes [email or web address] Information not available 06/14/2021 Has Tobacco Cessation Counseling Been Provided? No [email or web address] Information not available 06/14/2021 Have You Used IV Drugs? No [email or web address] Information not available 06/14/2021 Do You Have Difficulty Walking Or Climbing Stairs? No Information not available 06/14/2021 Sex: Unknown Functional Status Question Answer Note LastModified by Organizat ion Details LastModified Time Do you use any illicit or recreational drugs? No Information not available 04/12/2021 Do you or have you ever used any other forms of tobacco or nicotine? No [email or web address] Information not available 06/14/2021 What is your level of alcohol consumption? None Information not available 04/12/2021 Are you able to walk? YESWOREST [email or web address] Information not available 06/14/2021 Are you able to care for yourself? 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 No [email or web address] Information not available 06/14/2021 What is your exercise level? Occasional [email or web address] Information not available 06/14/2021 Mental Status Question Answer Note LastModified by Organization D etails LastModified Time Do you feel stressed (tense, restless, nervous, or anxious, or unable to sleep at night)? [id number] [email or web address] Information not available 06/14/2021 Family History Relationship Description Onset Age of this Age Resolved Age Notes LastModified by Organization Details LastModified Time Father Carcinoma in situ of lung [email or web address] Not available 13:52:20 Father Seizure disorder [email or web address] Not available 03/10 13:52:21 Maternal Grandmother Hypercholest erolemia [email or web address] Not available 06/14 11:27:31 Maternal Grandmother Hypertensive disorder [email or web address] Not available 06/14 11:27:31 Maternal Grandfather Hypercholest erolemia [email or web address] Not available 06/14 11:27:31 Maternal Grandfather Hypertensive disorder Not available 06/14 11:27:31 Maternal Aunt Carcinoma of uterine cervix, invasive [email or web address] Not available 03/10 13:52:21 Maternal Aunt Female infertility [email or web address] Not available 13:52:21 Medical History Condition Response Allergies (Food, seasonal, environmental ) N Other N Blood Transfusion N Drug/Latex Allergies/Reactions N Breast Cancer N Dermatologic Disorders N Lung Disease N [...] Pap Y Flow Moderate Date of LMP 04/30/2024 On BCP's at Conception? N N Was [...] SNOMED-CT Code Diagnosis ICD10 Code Diagnosis Note [id number] Cinthya Mora MD [facility] [address],[facility] [place] [address] 04/12/2021 10:48:06 04/12/2021 12:00:28 Routine care 417537278 Z34.92 History of loop electrosurgical excision procedure 4340072803 9102 Z98.890 History of SARS-CoV-2 29 46866616 72615640 Z86.16 [id number] Cinthya Mora MD [facility] [address],[facility] [place] [address] 04/12/2021 10:49:27 04/12/2021 11:59:51 Uncertain viability of 997020052 O36.80X9 Z3A.15 [id number] Cinthya Mora MD [facility] [address],[facility] [place] [address] 04/24/2021 13:52:03 04/24/2021 14:36:58 Previous operation to cervix affecting 68264122 O34.42 Z3A.16 [id number] Cinthya Mora MD [facility] [address],[place] [address] 04/24/2021 13:53:38 04/24/2021 15:24:43 History of SARS-CoV-2 3852719319 55650007 Z86.16 History of loop electrosurgical excision procedure 0254523578 9102 Z98.890 Routine an tenatal care 366448251 Z34.92 [id number] Cinthya Mora MD [facility] [address],[place] [address] 05/14/2021 09:28:55 05/14/2021 10:55:33 screening 848002157 Z36.3 [id number] Cinthya Mora MD [facility] [address],[place] [address] 05/14/2021 09:30:30 05/14/2021 10:55:03 Routine care 150709151 Z34.92 History of loop electrosurgical excision procedure 2344900886 9102 Z98.890 History of SARS-CoV-2 29 80738954 97711147 Z86.16 [id number] [facility] [address],[place] [address] 06/14/2021 11:09:35 06/14/2021 11:53:58 Routine care 576751254 Z34.92 [id number] Cinthya Mora MD [facility] [address],[place] [address] 06/18/2021 11:52:34 06/18/2021 12:43:29 History of SARS-CoV-2 8887029853 22063368 Z86.16 Z3A.24 [id number] [facility] [address],[place] [address] 07/12/2021 09:18:02 07/12/2021 09:52:10 Routine care 398573055 Z34.92 [id number] Cinthya Mora MD [facility] [address],[place] [address] 07/12/2021 09:36:53 07/12/2021 10:27:13 Pre-existing maternal disease complicating 2283529883 6106 O99.891 U07.1 Z86.16 Z3A.28 [id number] Cinthya Mora MD [facility] [address],[place] [address] 07/23/2021 14:06:42 07/23/2021 14:50:41 Routine care 697835746 Z34.92 [id number] Cinthya Mora MD [facility] [address],[place] [address] 08/13/2021 09:23:07 08/13/2021 09:56:03 Pre-existing maternal disease complicating 6730250446 6106 O99.891 U07.1 Z86.16 Z3A.32 [id number] Cinthya Mora MD [facility] [address],[place] [address] 08/13/2021 09:24:08 08/13/2021 10:33:34 Routine care 535396721 Z34.92 Bilateral carpal tunnel syndrome 3854438977 7300895 G56.03 [id number] Cinthya Mora MD [facility] [address],[place] [address] 08/27/2021 12:08:53 08/27/2021 13:32:42 Routine care 708540695 Z34.92 [id number] Cinthya Mora MD [facility] [address],[place] [address] 08/28/2021 16:13:04 08/28/2021 16:49:51 Routine care 070552118 Z34.92 BP check [id number] [facility] [address],[place] [address] 08/30/2021 13:45:42 08/30/2021 14:32:41 Routine care 183804491 Z34.92 [id number] [facility] [address],[place] [address] 09/06/2021 11:09:12 09/06/2021 11:32:49 Routine care 580525911 Z34.92 [id number] [facility] [address],[place] [address] 09/20/2021 10:48:04 09/20/2021 11:47:03 Postoperative care 589265805 Z48.89 This patient is a 30-year-ol d female who presents for postop follow-up. She is 1 week postop from a delivery. Her incision is clean dry and intact. She has no complaints . Her bleeding is minimal. She denies any nausea, vomiting, fever, chills. She denies any chest pain or shortness of breath. Her baby is doing well. Her mood is good. [id number] Pepe Monae MD [facility] [address],[place] [address] 10/11/2021 10:07:12 10/11/2021 10:58:17 Contraception care management 469483651 Z30.9 care 09941842 8 Z39.2 this patient is a 30-year-ol d female who presents for follow-up. Her mood is good. Her baby is good. She has stopped bleeding. She has not had sex. She was to oral contracept mago pills. She is bottle feeding. She return in 3 months for annual exam. [id number] Cinthya Mora MD [facility] [address],[place] [address] 10/30/2021 15:00:05 11/01/2021 11:12:44 depression 79696351 F53.0 [id number] Cinthya Mora MD [facility] [address],[place] [address] 03/03/2022 15:40:36 03/04/2022 16:24:00 Gynecologic examination 32532098 Z01.419 Lack of energy 967154843 R53.83 Weight gain 1463189 R63. 5 depression 58 595409 F53.0 Surveillan ce of oral contraception 994451040 Z30.41 History of abnormal cervical Papanicolaou smear 557722890 Z87.42 [id number] JUANITA Downey [facility] [address],[facility] [place] [address] 03/28/2022 10:32:33 03/28/2022 14:07:04 Obesity 233631151 E66.9 31yo Q2V9802Sab sents for initial weight management consultati onSmacrina is currently at her highest weight, 191lbs - BMI 31.9Her weight gain has been associated with recent , she has a 6 month old at home. Formula feeding.Sh bj has tried phentermin e in the past, [...] stepsWe discussed nutrition, she will schedule with artificial flowers dyer. Encouraged tracking on Mobilepolice alExercise recommenda tions discussed, 150 minutes of moderate to intense exercise per week, with 2 strength training sessions per week.-EKG ordered-La bs ordered-Sylvie reyes appointmen t scheduled- She will check her insurance for obesity medication coverage-R TC for f/u in 2 weeks to discuss medication options Time spent in visit is a total of 45 mins with at least 50% of visit consisting of counseling and review of plan of care. [id number] JUANITA Downey [facility] [address],[facility] [place] [address] 04/10/2022 16:19:16 04/10/2022 17:35:27 Obesity 416786636 E66.9 Reviewed recent labs - wnlShe would [...] ED precaution s discussedC ontinue meeting with artificial flowers dyer, she has a plan to start exercising f/u in 4 weeks Time spent in visit is a total of 40 mins with at least 50% of visit consisting of counseling and review of plan of care. Fatigue 59113465 R53.83 [id number] JUANITA Downey [facility] [address],[place] [address] 05/02/2022 11:10:06 05/05/2022 17:27:20 Obesity 202939327 E66.9 Down 6lbs since HILARIO!Doing well on contrave, desires to continueSh e has met with the artificial flowers dyer, making healthier food choices. Eating smaller portions, counting caloriesSh e has an exercise plan in placeConti nue on contrave, R/B/A/dosi ng discussedR TC in 1 month for f/u Time spent in visit is a total of 20 mins with at least 50% of visit consisting of counseling and review of plan of care. [id number] Pepe Monae MD [facility] [address],[place] [address] 03/10/2023 13:52:12 03/10/2023 15:42:51 Threatened miscarriage 47479570 O20.0 O36.80X0 Z3A.01 [id number] DEJA SANCHEZ MD [facility] [address],[place] [address] 03/10/2023 14:36:44 03/10/2023 15:30:49 of unknown location 9221457887 11794 O26.90 - LMP unknown- tubal ring suggestive of probably ectopic on US today, no IUP seen, no YS/embryo- will repeat hCG, as well as CBC and CMP- repeat US in 1 week- discussed medical (methotrex ate) vs surgical (salpingec jose) management if ectopic confirmed- warning signs and return precaution s reviewed [id number] Pepe Monae MD [facility] [address] [address] 03/16/2023 15:27:58 03/16/2023 16:24:21 Ectopic 79705447 O00.90 Z3A.01 [id number] DEJA SANCHEZ MD [facility] [address] [address] 03/16/2023 16:25:38 03/17/2023 16:07:00 Ectopic 25939934 O00.90 - pelvic US x2 demonstrat es [...] te injection, will trend hCGs to follow [id number] DEJA SANCHEZ MD [facility] [address] [address] 03/17/2023 10:19:52 03/17/2023 11:17:03 Ectopic 74907773 O00.90 [id number] DEJA ASNCHEZ MD [facility] [address] [address] 06/08/2023 15:34:55 06/12/2023 13:34:11 Gynecologic examination 07092737 Z01.419 [facility] woman [facility]- Cervical cancer screening: Pap smear obtained today, will follow up on the results with the patient as they become available- Breast cancer screening: mammogram not indicated- Colon cancer screening: not indicated- HPV immunizati on: no- STD testing: declined- hereditary cancer screening: does not qualify for testing Weight loss 92858858 R63 .4 - would like to restart phentermin e given good results prior to last - will order EKG prior to initiation [id number] Pepe Monae MD [facility] [address] [address],[place] [address] 09/18/2023 09:02:01 09/18/2023 09:46:08 [id number] DEJA SANCHEZ MD [facility] [address],[place] [address] 09/18/2023 09:02:18 09/18/2023 10:55:54 test positive 997751810 Z32.01 1. Exam today within normal limits.2. Ultrasound today confirms GA and viability. EDC . GC/Clamydi a testing done: will f/u as indicated. 4. ACOG guidelines and plan of care for reviewed with patient. All questions answered.5 . Return to office at 12 weeks for new OB visit6. Will need new OB labs at next visit.7. Genetic screening: declines. [id number] Pepe Monae MD [facility] [address],[place] [address] 10/13/2023 14:00:40 10/13/2023 15:27:22 screening 613739998 Z36.82 Z3A.11 [id number] DEJA SANCHEZ MD [facility] [address],[place] [address] 10/13/2023 14:01:08 10/13/2023 15:47:32 Routine care 975498343 Z34.91 Uterine sc ar from previous surgery affecting 05876761 O34.29 Gestation period, 11 weeks 87694307 Z3A.11 [id number] DEJA SANCHEZ MD [facility] [address],[place] [address] 11/10/2023 14:46:17 11/10/2023 15:45:37 Past history of section 054788988 Z98.890 - desires RCS with tubal ligation Gestation period, 15 weeks 1792469 Z3A.15 - continue PNV [id number] Pepe Monae MD [facility] [address],[place] [address] 12/08/2023 10:11:33 12/08/2023 12:00:32 screening 916037001 Z36.3 Z3A.19 [id number] DEJA SANCHEZ MD [facility] [address],[place] [address] 12/08/2023 11:21:04 12/08/2023 14:22:58 Disorder of uterus 27107835 N85.9 - [facility] consultati on for further evaluation of thin anterior uterine wall at site of prior hysterotom y Past pregn myla history of section 426327848 Z98.890 - desires RCS with tubal ligation History of loop electrosurgical excision procedure [id number] 9102 Z98.890 - CL wnl at [facility] US Gestation period, 19 weeks 18265596 Z3A.19 [id number] DEJA SANCHEZ MD [facility] [address],[place] [address] 01/12/2024 10:55:03 01/18/2024 11:12:53 675231739 R99 - demise following cervical insufficie ncy leading to intraamnio tic infection and labor- discussed implicatio n of classical c section on any future pregnancie s, including late delivery at ~36 weeks. Also recommend AT LEAST 1 year before attempting again due to known thin lower uterine segment- due to prematurit y at 23 weeks Postoperative care 65701 9007 Z48.89 S/pclassic alc section on . Incision well-heale d without any signs of infection2 . Family planning options discussed. She plans to use control pills to prevent . She will continue to abstain from intercours e until her 6wk visit.3. RTC 4wks for post-partu m check Cervical incompetence 17 919613 N88.3 - s/p 2nd trimester loss at 23 weeks due to cervical insufficie ncy followed by possible intraamnio tic infection and labor- do not suspect labor prior originally found cervical dilation as patient denies cramping or contractio ns until after inpatient admission- discussed history indicated cerclage in late 1st trimester with next if patient desires future [id number] DEJA SANCHEZ MD [facility] [address],[place] [address] 01/19/2024 10:05:51 01/19/2024 11:24:36 Urinary symptoms 593940437 R39.9 [id number] DEJA SANCHEZ MD [facility] [address],[place] [address] 02/08/2024 14:13:26 02/11/2024 14:07:50 Difficulty maintaining weight loss 685416852 E66.9 - patient reports difficulty with weight loss- would like to restart phentermin e, has had success in the past- will order EKG to evaluate prior to restarting Contracept ion care management 767507921 Z30.9 - previously on [place], no issues- would like to restart, no contraindi cations care 58384245 8 Z39.0 S/p repeatclas sicalc section 6 weeks ago complicate d by demise at 23 weeks here today for a visit.1. Patient recovering well2. Interested in OCPs for contracept ion at this time. Risks, benefits, and alternativ es reviewed with the patient3. Patient instructed to follow up in 6-12 months for well woman exam unless need arises prior [id number] DEJA SANCHEZ MD [facility] [address],[place] [address] 04/14/2024 09:33:55 04/14/2024 10:04:49 Mass of right breast [id number] 4707430 N63.10 - upper midline breast on chest wall with new tenderness and fullness- tenderness on exam, no distinct mass but does have some fullness in the area of tenderness - mother with hx of breast cysts- will order mammogram to evaluate [id number] DEJA SANCHEZ MD [facility] [address],[place] [address] 05/17/2024 10:25:47 05/17/2024 11:19:31 Sterilization requested 464358891 Z30.2 - patient desires permanent sterilizat ion- discussed risks, benefits, and alternativ es of bilateral salpingect ej, including risks of bleeding, infection and injury to surroundin g organs. Also discussed alternativ e contracept mago options including partner vasectomy and patient declines.- tubal consents signed Health Concerns Section Related Observation LastModified by Organization Detai ls LastModified Time None Recorded Concern Status LastModified by Organization Details LastModified Time None Recorded Advance Directives Directive N: Payers Insurance Date Sequence Insurance Name Policy Number Policy Caldera Covered Member ID Caldera Member ID Guarantor Name 08/26/2024 1 [place] [id number] Joshua Schmitt [id number] Kerry Schmitt 06/11/2021 1 [employer] [id number] Kerry Schmitt [id number] Kerry Schmitt Notes Date Note Type Note Provider Name and Address Organization Details Recorded Time 4 text/html s/p C/S 01/01 complicated by labor, cervical insufficiency and demise. She presents today for her incision check. Her postop course has been unremarkable. She has minimal spotting, denies pain, fever or any other concerning symptoms. Her mood is appropriate. Per chart review from stay at [facility] and discussion with [facility], patient presents for follow up US on [...] window. DEJA SANCHEZ MD [address], [place], [address], [place] - [facility] 01/13/2024 23:52:10 4 text/html S/Pclassical repeatCS [...] EKG. DEJA SANCHEZ MD [address], [place], [address], [facility] 02/08/2024 23:07:37 5 text/html Patient presents for breast exam for new right breast tenderness. She noticed it in the shower, also feels linn than left side. No previous breast issues. Mother with hx of breast cysts. DEJA SANCHEZ MD [address], [place], [address], [facility] 04/14/2024 10:04:33 5 text/html Patient presents for discussion of permanent sterilization. She has completed childbearing and would like a permanent form of control. No PSH. She and her partner have discussed their options and would like to move forward with tubal ligation. DEJA SANCHEZ MD [address], [place], [address], [facility] 05/17/2024 10:48:12 OBGyn Episode Ob Episode Information Episode Created Date Number of Fetuses Patient Bloodtype Patient rh Status Prepregnancy Weight lbs Domestic Partner Domestic Partner Phone Father Name Silver Miner Status 04/12/19 22 1 A Positive CLOSED Fetus Data First Name Last Name Admitted to NICU Weight (g) Sex Living Outcome Pediatric Complications Fetus ID Race Codes Race Delivery Type Vero hazel 3260.19 25 M true Full Term [id number] Primary Problems Problem Notes declines COVID vaccines Problem Name Start Date End Date Resolution Snomed Code Not e History of SARS-CoV-2 91268220 [id number] ASA, growth US History of loop electrosurgical excision procedure [id number] CL at 1 6 and 20w Harpreet Calculation Initial Harpreet Date Initial Exam Date Initial Exam Provider Initial Ultrasound Date Last Menstrual Period Date Ultra Sound Weeks Gestation 10/03/2021 04/12/2021 04/12/2021 01/04/2021 15 Eighteen To Twenty Week Harpreet Update Ultra Sound Date Fundal Height At Umbil Quickening Date Ultra Sound Latest Weeks Gestation Final Harpreet Confirmed By Final Harpreet Confirmed Date Final Harpreet Date Ultra Sound Latest Days Gestation 0 [email or web address] 04/12/2021 10/04/19 22 0 Pre- Flowsheet Flowsheet Date 04/12/2021 Moraes Score Blood Edema Fundus Height Fundus Units Glucose Ketones Leukocytes Nitrite Labor Signs Protein Cervic Dilation Cervic Effacement Cervic Station neg none none trace Type Weight in lbs Pre/Post Dialysis Refused Weight 175.095877171914 BP Diastolic BP Location Tested BP Systolic BP Type 94 141 88 130 Fetus Heart Rate Present Fetus Movement A No Comments Kerry is a G1 at 14w by MEI P here for care. Transfer from [place]. She is unvaccinated for COVID and plans [...] Weight in lbs Pre/Post Dialysis Refused Weight 176.184523693979 BP Diastolic BP Location Tested BP Systolic [...] Weight in lbs Pre/Post Dialysis Refused Weight 184.883281833782 BP Diastolic BP Location Tested BP Systolic [...] Weight in lbs Pre/Post Dialysis Refused Weight 195.614034350203 BP Diastolic BP Location Tested BP Systolic [...] Weight in lbs Pre/Post Dialysis Refused Weight 204.642224473552 BP Diastolic BP Location Tested BP Systolic [...] Weight in lbs Pre/Post Dialysis Refused Weight 208.499935551591 BP Diastolic BP Location Tested BP Systolic [...] Weight in lbs Pre/Post Dialysis Refused Weight 210.863128839635 BP Diastolic BP Location Tested BP Systolic [...] Weight in lbs Pre/Post Dialysis Refused Weight 216.406201371789 BP Diastolic BP Location Tested BP Systolic [...] several days ago. Per AD, pt to [facility] for stat lower extremity venous dopplers and Outpatient Lab for PIH labs. Pt verbalized understanding of instructions and was given printed orders. Kaelyn Hughes RN Flowsheet Date 08/30/2021 Moraes Score Blood Edema Fundus Height Fundus Units Glucose Ketones Leukocytes Nitrite Labor Signs Protein Cervic Dilation Cervic Effacement Cervic Station neg trace none trace Type Weight in lbs Pre/Post Dialysis Refused Weight 216.359725908139 BP Diastolic BP Location Tested BP Systolic [...] Weight in lbs Pre/Post Dialysis Refused Weight 217.471812764398 BP Diastolic BP Location Tested BP Systolic [...] Weight in lbs Pre/Post Dialysis Refused Weight 202.938310571495 BP Diastolic BP Location Tested BP Systolic [...] At Estimated Date of Delivery false Thalassemia (Maltese, Finnish, Mediterranean, Or Background): MCV < 80 false Neural Tube Defect (Meningom yelocele, Spina Bifida, Or Anencephaly) false Congenital Heart Defect false Down Syndrome true FOB sister Lind[place]-Sachs (eg, Judaism, Cajun, Vietnamese-[place]) f alse Dani Disease false Sickle Cell [...] Post Complications [facility] Date [facility] Trans[facility] false Pepe Monae MD failure to descend Discharge Information Feeding Method Contraceptive Method Maternal HG B and HCT Levels Ob Episode Information Episode Created Date Number of Fetuses Patient Bloodtype Patient rh Status Prepregnancy Weight lbs Domestic Partner Domestic Partner Phone Father Name Silver Miner Status 10/13/19 24 1 A Positive 197.4 CLOSED Fetus Data First Name Last Name Admitted to NICU Weight (g) Sex Living Outcome Pediatric Complications Fetus ID Race Codes Race Delivery Type Christel F Demise 89853 Repeat Problems Problem Notes [facility] Una: 12/15 consult, u/s Problem Name Start Date End Date Resolution Snomed Code Not e Disorder of uterus 95010407 1 -2mm of uterine wall underlying bladder, [facility]23 Past history of section 727512161 Plan for re peat, desires tubal Harpreet [...] Weight in lbs Pre/Post Dialysis Refused Weight 193.33119190340 BP Diastolic BP Location Tested BP Systolic [...] Type Weight in lbs Pre/Post Dialysis Refused 198.255411818111 BP Diastolic BP Location Tested BP Systolic [...] Type Weight in lbs Pre/Post Dialysis Refused 203.79084030699 BP Diastolic BP Location Tested BP Systolic [...] Weight in lbs Pre/Post Dialysis Refused Weight 203.649709434692 BP Diastolic BP Location Tested BP Systolic [...] Weight in lbs Pre/Post Dialysis Refused Weight 205.162252961275 BP Diastolic BP Location Tested BP Systolic [...] Post Complications Tubal Sterilization Discharge Date Comments Sponta neous 23.2 Classical true Discharge Information Feeding Method Contraceptive Method Maternal HG B and HCT Levels Ob Episode Information Episode Created Date Number of Fetuses Patient Bloodtype Patient rh Status Prepregnancy Weight lbs Domestic Partner Domestic Partner Phone Father Name Silver Miner Status 06/08/19 24 1 CLOSED Fetus Data First Name Last Name Admitted to NICU Weight (g) Sex Living Outcome Pediatric Complications Fetus ID Race Codes Race Delivery Type Ectopic [id number] Harpreet Calculation Initial Harpreet Date Initial Exam [...]
--- OUTSIDE RECORDS SUMMARY | 2024-08-29 02:28 | XMS_ITS | Clinical Summary ---
Author Organization [facility] Address [address] [place] [address] Phone Care Team Providers Care Diesel Mechanic Name Role Phone Stoney Asif MD Primary [...] 69.4 kg (153 lb) 04/25/2020 10:51 AM ACUTE CARE ASSISTANT Height 165.1 cm (5' 5) 04/25/2020 10:51 AM ACUTE CARE ASSISTANT Body Mass Index 25.46 04/25/2020 10:51 AM ACUTE CARE ASSISTANT Plan of Treatment Health Maintenance Due Date Last Done Comments Hepatitis C Virus (HCV) Screening 1990 TdaP Immunization 1990 Human Papillomavirus (HPV) Immunization (1 - 3-dose series) 2005 Hepatitis B Immunization (1 of 3 - 19+ 3-dose series) 2009 Pap Smear 12/28/2011 Cervical Cancer Screening (CCS) 2020 HPV/Cotest 2020 SARS-COV-2 Immunization ( - 2023-25 season) 2023 Influenza Immunization (#1) 2024 Respiratory Syncytial Virus (RSV) Immunization (Adult) (1 - 1-dose 75+ series) 2065 Meningococcal Immunization (ACWY) Aged Out No longer eligible based on patient's age to complete this topic Pneumococcal Immunization Combined Aged Out No longer eligible based on patient's age to complete this topic Rotavirus Immunization Aged Out No lo nger eligible based on patient's age to complete this topic [place] [address] [place] [address] Care Teams Diesel Mechanic Relationship Specialty Start Date End Date Stoney Asif MD [address] [place] [address] PCP - General Family Medicine 12/19/15
--- OUTSIDE RECORDS SUMMARY | 2024-08-29 02:28 | XMS_ITS | Encounter Summary ---
Author Organization [facility] Address [address] [place] [address] Care Team Providers Care Senior Adults Director Name Role Phone Unavailable Primary Care Provider Unavailabl e Encounter Details Date Type Department Care Team (Late st Contact Info) Description 03/11/2023 Lab Requisition [facility] - DermPath Lab [address] [place] [address] Mason Long MD [facility] DERMATOLOGY [address] [place] [address] Neoplasm of uncertain behavior of skin Social History Tobacco Use Types Packs/Day Years Used Date Smoking Tobacco: Never Assessed Comments Unknown Sex and Gender Information Value Date Recorded Sex Assigned at Not on file Legal Sex Female 4:15 PM [facility] B[facility] Gender Identity Not on file Sexual Orientation Not on file documented as of this encounter Plan of Treatment Not on file documented as of this encounter Procedures Procedure Name Priority Date/Time Associated Diagnosis Comments DERMATOPATHOLOGY Routine 03/11/2023 3:33 AM [facility] BURNISHER Neoplasm of uncertain behavior of skin documented in this encounter Results * DERMATOPATHOLOGY (03/11/2023 3:33 AM [facility] BURNISHER) Case Report Dermatopathology Report Case: [id number] Authorizing Provider: Mason Long MD Collected: 03/11/2023 03:33 AM Ordering Location: [facility] DermPath Lab Received: 03/13/2023 07:43 AM Pathologist: Karla Wolf MD Specimens: A) - Skin, lft lateral plantar 3rd toe B) - Skin, left lateral plantar mid foot 4:16 PM [facility] DERMATOPATHOLOGY LABORATORY Final Diagnosis Specimen A. SKIN, lft lateral plantar 3rd toe: DERMAL SCAR (L90.5) Specimen B. SKIN, left lateral plantar mid foot: COMPOUND MELANOCYTIC NEVUS, OF ACRAL SKIN (D22.72) 4 4:16 PM [facility] DERMATOPATHOLOGY LABORATORY at [address] [facility] Clinical History A-B: Neoplasm of Uncertain Behavior 4 4:16 PM [facility] DERMATOPATHOLOGY LABORATORY Gross Description Specimen A: Received is one formalin filled container labeled with the patient's name and designated lft lateral plantar 3rd toe. The specimen consists of a shave biopsy measuring 84y91f4 mm. Jar 0. Specimen B: Received is one formalin filled container labeled with the patient's name and designated left lateral plantar mid foot. The specimen consists of a shave biopsy measuring 44o71v0 mm. Jar 0. 4 4:16 PM [facility] DERMATOPATHOLOGY LABORATORY Microscopic Description Specimen A. [...] in the upper dermis. 4 4:16 PM [facility] DERMATOPATHOLOGY LABORATORY Disclaimer An external and internal positive and negative controls are appropriate for the histochemical, immunohistochemical and immunofluorescence stain(s) in this case (if any), except where stated explicitly. The performance characteristics of the stain(s) cited in this report were developed and its performance characteristic determined by the Dermatopathology Laboratory at [facility], directed by Dr. Lorenzo Montanez. These tests need not be, and therefore are not, approved by the [place] Food and Drug Administration. The tests are used for clinical purposes. Billing Codes Specimen Charges Stain Charges 45178 98877 1 1 4 4:16 PM [facility] DERMATOPATHOLOGY LABORATORY Embedded Images 4 4:16 PM [facility] DERMATOPATHOLOGY LABORATORY Pathology/Cytology TISSUE SPECIMEN FROM SKIN / Unknown 03/11/2023 3:33 AM ST[facility] BURNISHER 03/13/2023 7:43 AM [facility] Miscellaneous samples (specimen) TISSUE SPECIMEN FROM SKIN / Unknown 03/11/2023 3:33 AM [facility]ER 03/13/2023 7:43 AM [facility] B[facility]ER us Mason Long MD LAB - PATHOLOGY/CYTOLOGY CIRO DINH Final Result DERMATOPATHOLOGY LABORATORY [facility] - Department of Dermatology [address], [address] [phone] documented in this encounter Visit Diagnoses Diagnosis Neoplasm of uncertain behavior of skin documented in this encounter
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
--- NOTE | 2024-08-29 07:25 | P.PNAN_ITS ---
Anes - Initial Pre Proc Eval Procedure: Operation Date: 08/29/24 09:00 Proposed Procedures p Laparoscopic Bilateral Salpingectomy - German Linder MD Date/Time: 08/29/24 07:25 Surgeon: German Linder MD Pre Op Diagnosis: sterilization requested Patient Data Age: 33 Gender: F Height: 1.65 m Weight: 85 kg Allergies Allergy/AdvReac Type Severity Reaction Status Date / Time No Known Allergies Allergy Unverified 08/29/24 07:36 Home Medications ?Medication ?Instructions ?Recorded ?Confirmed ?Type norethindrone 1 mg-ethinyl 1 tablet PO DAILY 08/17/24 08/17/24 History estradiol 20 mcg (21)-iron 75 mg (7) tablet (Blisovi Fe 03/07 (28)) Patient hx anesthesia problems: none Family hx anesthesia problems: none Results Review: All pre-operative results and documents have been reviewed as part of the pre- operative evaluation. PMFSH Past Medical History Medical History (Updated 08/29/24 @ 08:21 by Les Saunders DO) IUP (intrauterine ), incidental Family History Family History Grandparent Hypertension Adenocarcinoma Social History Social History Smoking status: Never smoker Second hand tobacco smoke exposure: No Alcohol intake: current Alcohol use details: SOCIALLY Substance use: never Substance use type: does not use Living arrangements: with family Additional living arrangements comments: and son Occupation/Education: occupation Gender identity (if verbalized by the patient): Female Spiritual care concerns: No Anes - Eval Final PreProcedure Day of Procedure 08/29/24 07:25 Patient weight: obese Heart: regular rate and rhythm Lungs: clear to auscultation Airway: Mallampati scale class II Neurological: alert and oriented Last oral intake: >/= 8 hours ASA classification: II Emergent: no Anesthetic plan: proceed Anesthesia type and monitoring: general ETT and standard monitoring Results Review: All pre-operative results and documents have been reviewed as part of the pre- operative evaluation. Informed Consent: The patient's anesthetic plan and its attendant risks and benefits were discussed with the patient/family/POA. Questions were solicited and answers provided to the satisfaction of the patient/family/POA.
[2024-08-29] MEDS: KETOROLAC 15 MG/ML VIAL (*BKC) IV PUSH (07:36)
[2024-08-29] MEDS: LACTATED RINGERS 1,000 ML 30 ML IV CONT ×3 (07:36→12:03)
[2024-08-29] MEDS: ACETAMINOPHEN 500 MG TABLET 1000 MG PO (07:36)
[2024-08-29 07:41] LABS: BEDSIDEPREGUCG Negative (Negative)
--- NOTE | 2024-08-29 07:46 | PM.IMHP ---
H&P: HPI History of Present Illness Date/Time: 08/29/24 07:46 Chief Complaint: sterlization requested Narrative: Patient is 33 year old female who presents for bilateral salpingectomy. She does not desire any further natural childbearing. Risks, benefits, and alternatives to the procedure discussed with patient who voices understanding. Denies abdominal pain, dysuria, fevers or chills. Review of Systems Review of Systems: All systems reviewed & are unremarkable except as noted in HPI and below PMFSH Past Medical History Medical History Asthma IUP (intrauterine ), incidental Family History Family History Grandparent Hypertension Adenocarcinoma Social History Social History Smoking status: Never smoker Second hand tobacco smoke exposure: No Alcohol intake: current Alcohol use details: SOCIALLY Substance use: never Substance use type: does not use Living arrangements: with family Additional living arrangements comments: and son Occupation/Education: occupation Gender identity (if verbalized by the patient): Female Spiritual care concerns: No Meds Home Medications and Allergies Home Medications ?Medication ?Instructions ?Recorded ?Confirmed ?Type norethindrone 1 mg-ethinyl 1 tablet PO DAILY 08/17/24 08/17/24 History estradiol 20 mcg (21)-iron 75 mg (7) tablet (Blisovi Fe 03/07 (28)) Allergies Allergy/AdvReac Type Severity Reaction Status Date / Time No Known Allergies Allergy Unverified 08/29/24 07:36 Vital Signs Vital Signs - 24 hr 08/29/24 07:38 Temperature 97.4 F L Pulse Rate 70 Respiratory Rate 16 Blood Pressure 128/74 Pulse Oximetry 99 Oxygen Delivery Room Air Exam Const: General: comfortable and no acute distress Eyes: General: appearance normal, both eyes and all related structures Resp: Effort & Inspection: normal respiratory effort Cardio: Rate: regular rate Psych: Mental Status: mental status grossly normal Assessment and Plan Assessment and plan (1) Encounter for sterilization: Code(s): Z30.2 - Encounter for sterilization Status: Acute Assessment and Plan: - risks benefits and alternatives of sterilization discussed with patient including the permanence of the procedure - patient voices understanding - will proceed with laparoscopic bilateral salpingectomy
--- NOTE | 2024-08-29 07:49 | WPDHPUPDATE1 ---
History and Physical Update Update Date/Time: 08/29/24 07:49 History and Physical has been reviewed, including an updated exam of the patient. There are NO changes in the patient's condition. Risks, benefits, and alternatives have been discussed and questions answered. Patient agrees to proceed with procedure.
--- NOTE | 2024-08-29 09:57 | S_PTH ---
PATIENT: Kerry Schmitt LOC: [facility] U#:[id number] AGE/SX: 33/F ROOM: RE08/29/[address]: German Linder MD : 1990 BED: DIS: 08/29/2024 SPEC #: [id number] RECD: 08/29/24 10:38 STATUS: VITALIY REVick #: [id number] EUGENIO: 08/29/24 09:[address]: German Linder DEPT: [facility] Surgical RECD BY: Zaria Alexandra Tissues: A - Fallopian Tube Bilateral Procedures: Gross and Microscopic Level 2 Hematoxylin and Eosin Stain
--- NOTE | 2024-08-29 10:24 | P.OP_ITS ---
Procedure Note - Detailed Date of Procedure 08/29/24 Pre-op Diagnosis sterilization requested Post-op Diagnosis Same Procedure Performed laparoscopic bilateral salpingectomy Surgeon German Linder MD Anesthesia General Indications desires permanent sterilization Findings normal appearing uterus and bilateral ovaries. right fallopian tube adhered to anterior abdominal wall peritoneum at the fimbriae; omental adhesions to the umbilicus; appendiceal epiploica adhered to right ovary Description of Procedure With IV fluids infusing, the patient was taken to the operating room. The patient was placed in supine position. General anesthesia with endotracheal intubation was given. A time-out took place. The patient was placed in dorsal lithotomy position using Alfred stirrups and she was prepped and draped in the [facility] sterile fashion. The bladder was drained using a red rubber catheter. A sterile speculum was placed vaginally, the anterior lip of the cervix was grasped with a single-tooth tenaculum and the acorn uterine manipulator was placed without difficulty. The speculum was removed. The surgeon's gloves were changed and attention was turned to the abdomen. A 5 mm incision was made in the umbilicus. Under direct visualization with the scope, the umbilical port was inserted without difficulty. Another two trocars were placed under direct visualization in the left upper and left lower quadrants. The patient was placed in Trendelenburg and inspection of the pelvis noted the above findings. Appropriate pictures were taken. The omental adhesions were cauterized and cut using the ligasure device. Using the LigaSure device, a left salpingectomy was performed in the usual fashion. Care was taken to avoid the IP ligament. The salpingectomy went smoothly. The same procedure was repeated on the right side, however the fibriae were not able to be removed as they were strongly adhered to the anterior abdominal wall. The adhesions between the appendix and the right ovary were cauterized and cut using the Ligasure device. The instruments were all removed from the abdomen and the CO2 gas was allowed to escape. The three skin incisions were reapproximated with 4-0 Polysorb in a subcuticular manner, followed by skin glue. The acorn manipulator and single tooth tenaculum was removed from the uterus and cervix, respectively. The tenaculum sites were hemostatic. All instruments were removed from the vagina. At the end of the case, instrument, sponge and needle counts were correct x 2. The patient was awakened from general anesthesia and was taken to PACU in stable condition. Estimated Blood Loss 5 Pathology Yes Complications No immediate complications Condition Stable Disposition Same day
[2024-08-29] MEDS: fentaNYL CITRATE INJ (*CRX) 100 MCG/2 ML VIAL 25 MCG IV PUSH ×6 (10:27→11:02)
[2024-08-29] MEDS: ONDANSETRON INJ 4 MG/2 ML VIAL IV PUSH (11:31)
[2024-08-29] MEDS: SCOPOLAMINE 1 MG PATCH 1 PATCH TRANSDERM (12:02)
[2024-08-29] MEDS: oxyCODONE HCL (*CRX) 5 MG TAB IR PO (12:03)
--- NOTE | 2024-08-29 14:28 | SUR.PHASEII ---
[id number] PATIENT ASKED IF OXYCODONE IS SAFE WHILE . DR. SANCHEZ STATED THAT HOME SCRIPT OXYCODONE IS SAFE FOR . MESSAGE RELAYED TO PATIENT.
== END 2024-08-29 13:00 | disposition home or self-care (01) ==
PROVIDERS: Visit Provider Obstetrics & Gynecology
PROC: (CPT 49320; principal; 2024-08-29 09:00)
DX: Z30.2 Encounter for sterilization (principal); N83.8 Other noninflammatory disorders of ovary, fallopian tube and broad ligament; E66.9 Obesity, unspecified; Z68.30 Body mass index [BMI] 30.0-30.9, adult
CPT/HCPCS: 58661; 88302; A9270; J1100; J1200; J1885; J2003; J2004; J2250; J2405; J2704; J3010; J7120